=== PATIENT | female | born 1990 | race Hispanic/Latino ===

== ENCOUNTER 2018-10-30 04:04 | Inpatient (IN) | payer OTHER ==
[2018-10-30] MEDS ORDERED: METHYLERGONOVINE 0.2MG/ML AMP IM PRN (04:42)
[2018-10-30] MEDS ORDERED: BUTORPHANOL 1 MG/ML INJ IV PRN (04:42)
[2018-10-30] MEDS ORDERED: PROMETHAZINE 25 MG/ML VIAL IM PRN (04:42)
[2018-10-30] MEDS ORDERED: Ringers Lactate 1,000 ML IV PRN (04:42)
[2018-10-30] MEDS ORDERED: CARBOPROST TROME 250 MCG/ML IM PRN (04:42)
[2018-10-30] MEDS ORDERED: OXYTOCIN/LR 20 UNIT/1,000 ML BAG IV SCH ×2 (05:00→10:00)
[2018-10-30] MEDS ORDERED: Ringers Lactate 1,000 ML IV SCH (05:00)
[2018-10-30] MEDS ORDERED: CLINDAMYCIN 900MG/D5W 900 MG/50 ML IVPB IV ONE (05:28)
[2018-10-30 05:44] VITALS: BMI 33.6
[2018-10-30] MEDS ORDERED: CLINDAMYCIN INJ 900 MG in NA CHLORIDE 0.9% 50 ML IV SCH (06:00)
[2018-10-30 06:02] LABS: Urine Appearance CLEAR; Urine Bilirubin NEGATIVE (NEG); Urine Blood NEGATIVE (NEG); Urine Color YELLOW; Urine Glucose 2+ (NEG); Urine Protein NEGATIVE (NEG); Urine Specific Gravity >=1.030 (1.005-1.030); Urine pH 6.5 (5.0-7.0)
[2018-10-30 06:04] LABS: Urine Microscopic Reflex NO UMIC
[2018-10-30 06:07] LABS: Absolute Lymphocytes (CBC) 2.2 K/uL (0.7-4.9); Basophils % 0.2 % (0-1.3); Hematocrit 30.6 % (36.0-45.0); Lymphocytes % 20.5 % (15.3-44.8); MPV 8.8 fL (7.6-11.3); RBC Red Blood Cell Count 3.21 M/uL (3.86-4.86)
[2018-10-30] MEDS ORDERED: MEPERIDINE HCL 25 MG/0.5 ML IV ONE (09:02)
[2018-10-30] MEDS ORDERED: LIDOCAINE 1% 20 ML MDV ONE (09:49)
[2018-10-30] MEDS ORDERED: DOCUSATE NA/SENNA CONC 1 TAB PO PRN (09:57)
[2018-10-30] MEDS ORDERED: Oxycodone HCl/Acetaminophen 1 TAB TAB PO PRN (09:57)
[2018-10-30] MEDS ORDERED: ACETAMINOPHEN 500 MG TAB PO PRN (09:57)
[2018-10-30] MEDS ORDERED: BISACODYL 10 MG RECTAL SUPP RECT PRN (09:57)
[2018-10-30] MEDS ORDERED: DIPHENHYDRAMINE 25 MG TAB/CAP PO PRN (09:57)
--- NOTE | 2018-10-30 11:40 | PREOPHP ---
Date of Admission: 10/30/2018 Cindy Albrecht is a 27-year-old 3, para 2, 39 weeks. Rh positive. Immune to Rubella. Positiv e beta-strep screen. Allergic to penicillin. She has been put on Cleocin, has received 1 dose thus far. FHTs normal, reactive. Vital signs all stable. Patient is anemic on admission, though with he matocrit of approximately 31. This has been discussed with the patient during her . Patien t is 3.5, almost 4 cm, 60% effaced, vertex, well applied. The cervix still slightly posterior. Rupt ure of membranes, clear fluid. Labor talk given. The patient has had 2 natural childbirths and she anticipates going natural with this one as well. Anticipate delivery relatively soon, hopefully befo re midday. SURESH/NEHA Voice ID: [id number]
--- NOTE | 2018-10-30 11:43 | OP ---
Surgeon: Eric Pritchard MD 27-year-old 3, para 1, 39 weeks gestation. 3.5 cm when first examined this morning. Contrac ting regularly. FHTs normal, reactive. She had 1 dose of Cleocin as she was beta strep positive but allergic to penicillin. Rupture of membranes at that point. Patient went to a very active labor pa ttern. Used Lamaze breathing techniques throughout. Second stage of 10-15 minutes or less. Spontan eous vaginal delivery of a 7 pound 8 ounce female. Apgars 9 and 9. No episiotomy. No laceration. Schultze delivery of the placenta, which was inspected and noted to be intact and normal. Less than 250 mL blood loss. Rh positive, immune to Rubella. Tolerated all procedures well. Final Diagnoses: Term intrauterine at 39 weeks, vaginal delivery, Cleocin prophylaxis. SURESH/NEHA Voice ID: [id number] Report ID: [id number]
[2018-10-30] MEDS: IBUPROFEN 200 MG TAB PO PRN ×2 (12:50→21:00)
[2018-10-30] MEDS: Oxycodone HCl/Acetaminophen 1 TAB TAB PO PRN ×2 (16:43→22:55)
[2018-10-30 21:44] LABS: RPR (Rapid Plasma Reagin) NON-REACT (NON-REACT)
[2018-10-31 07:15] VITALS: BP 126/82; TEMP 97.4
--- NOTE | 2018-11-02 10:13 | DS ---
Date of Discharge: 10/31/2018 Roland Albrecht is a 27-year-old 3, para 2 at 39 weeks gestation for elective induction. Pros and cons of this thoroughly discussed prior to admission. Rh positive, immune to Rubella. Positive beta strep screen. Allergic to penicillin. During the labor patient received Cleocin for prophylaxi s. After rupture of membranes, went into an active labor pattern. Delivered rapidly. Short second stage of 10-15 minutes. Spontaneous vaginal delivery of a 7 pounds 8 ounce female. Apgars 9 and 9. No episiotomy. No laceration. Schultze delivery of the placenta, which was inspected and noted to be intact and normal. 250 cc blood loss or less. ; afebrile, ambulating and voiding. Loc hia is normal. She has had her Tdap immunization. Requesting analgesics on dismissal. Will be give n tramadol, although she may elect to take Motrin instead. Final Diagnoses: Term intrauterine 39 weeks. Vaginal delivery. Beta streptococcus prophy laxis, Cleocin. SURESH/NEHA Voice ID: [id number] Report ID: [id number]
[2018-11-02 12:49] LABS: HBsAG Nonreactive (Nonreactive)
== END 2018-10-31 12:30 | disposition home or self-care (01) | DRG 807 ==
LOC: 2ND-WC 04:04
PROVIDERS: ADMIT Specialist; ATTEND Specialist
PROC: 10E0XZZ Delivery of Products of Conception, External Approach (ICD-10-PCS; principal; 2018-10-30)
PROC: 10907ZC Drainage of Amniotic Fluid, Therapeutic from Products of Conception, Via Natural or Artificial Opening (ICD-10-PCS; 2018-10-30)
DX: O99.824 Streptococcus B carrier state complicating childbirth (principal); Z37.0 Single live birth; O99.02 Anemia complicating childbirth; Z3A.39 39 weeks gestation of pregnancy; Z88.0 Allergy status to penicillin
CPT/HCPCS: 36415; 81003; 85025; 86592; 86850; 86900; 86901; 87340; J2175; J2210; J2590

== ENCOUNTER 2018-11-13 12:45 | Emergency (ER) | payer OTHER ==
--- NOTE | 2018-11-13 13:51 | EDPHYS ---
Physician Documentation [facility] Name: Cindy Albrecht Age: 28 yrs Sex: Female : 1990 Arrival Date: 11/13/2018 Time: 12:48 Bed 27 Private MD: ED Physician Jenaro Zamudio HPI: 11/13 13:43 This 28 yrs old Female presents to ER via Ambulatory with complaints of Breast pm1 Problem. 13:43 Left breast pain. Onset: The symptoms/episode began/occurred yesterday. Severity of pm1 symptoms: in the emergency department the symptoms are unchanged. The patient has not experienced similar symptoms in the past. The patient has not recently seen a physician. Patient with left breast tissue pain that started yesterday. patient is breast feeding. 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 - Social history:: Smoking status: Patient/guardian denies using tobacco. - Ebola Screening: : No symptoms or risks identified at this time. ROS: 13:43 Constitutional: Negative for fever, chills, and weight loss, Eyes: Negative for injury, pm1 pain, redness, and discharge, ENT: Negative for injury, pain, and discharge, Neck: Negative for injury, pain, and swelling, Cardiovascular: Negative for chest pain, palpitations, and edema, Respiratory: Negative for shortness of breath, cough, wheezing, and pleuritic chest pain, Abdomen/GI: Negative for abdominal pain, nausea, vomiting, diarrhea, and constipation, Back: Negative for injury and pain, : Negative for injury, bleeding, discharge, and swelling, MS/Extremity: Negative for injury and deformity, Skin: Negative for injury, rash, and discoloration, Neuro: Negative for headache, weakness, numbness, tingling, and seizure. Exam: 13:43 Constitutional: This is a well developed, well nourished patient who is awake, alert, pm1 and in no acute distress. Head/Face: Normocephalic, atraumatic. Eyes: Pupils equal round and reactive to light, extra-ocular motions intact. Lids and lashes normal. Conjunctiva and sclera are non-icteric and not injected. Cornea within normal limits. Periorbital areas with no swelling, redness, or edema. ENT: Nares patent. No nasal discharge, no septal abnormalities noted. Tympanic membranes are normal and external auditory canals are clear. Oropharynx with no redness, swelling, or masses, exudates, or evidence of obstruction, uvula midline. Mucous membranes moist. Neck: Trachea midline, no thyromegaly or masses palpated, and no cervical lymphadenopathy. Supple, full range of motion without nuchal rigidity, or vertebral point tenderness. No Meningismus. 13:43 Cardiovascular: Regular rate and rhythm with a normal S1 and S2. No gallops, murmurs, or rubs. Normal PMI, no JVD. No pulse deficits. Respiratory: Lungs have equal breath sounds bilaterally, clear to auscultation and percussion. No rales, rhonchi or wheezes noted. No increased work of breathing, no retractions or nasal flaring. Abdomen/GI: Soft, non-tender, with normal bowel sounds. No distension or tympany. No guarding or rebound. No evidence of tenderness throughout. Back: No spinal tenderness. No costovertebral tenderness. Full range of motion. Skin: Warm, dry with normal turgor. Normal color with no rashes, no lesions, and no evidence of cellulitis. MS/ Extremity: Pulses equal, no cyanosis. Neurovascular intact. Full, normal range of motion. 13:43 Chest/axilla: Inspection: normal, Breasts: abscess, not appreciated, cellulitis, is not appreciated, rash, is not appreciated, tenderness, that is mild of the left breast, 8 o'clock. 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 13:43 Neuro: Orientation: is normal, Motor: is normal, moves all fours. Vital Signs: 12:51 BP 142 / 93; Pulse 84; Resp 18; Temp 98; Pulse Ox 100% ; Weight 80.29 kg; Height 5 ft. sv 3 in. (160.02 cm); Pain 6/10; 13:14 BP 132 / 78; Pulse 87; Resp 18; Temp 97.8; Pulse Ox 100% on R/A; wh 12:51 Body Mass Index 31.35 (80.29 kg, 160.02 cm) sv MDM: 13:15 Patient medically screened. pm1 13:43 Data reviewed: vital signs. Data interpreted: Pulse oximetry: on room air is 100 %. pm1 Interpretation: normal. Counseling: I had a detailed discussion with the patient and/or guardian regarding: the historical points, exam findings, and any diagnostic results supporting the discharge/admit diagnosis, the need for outpatient follow up, for definitive care, an OB/Gyne specialist, to return to the emergency department if symptoms worsen or persist or if there are any questions or concerns that arise at home. Administered Medications: No medications were administered Disposition: 16:06 Co-signature as Attending Physician, Jenaro Zamudio MD I agree with the assessment and kdr plan of care. Disposition: 11/13/18 13:50 Discharged to Home. Impression: Nonpurulent mastitis associated with . - Condition is Stable. - Discharge Instructions: Mastitis, and Mastitis. - Prescriptions for clarithromycin 500 mg Oral tablet - take 1 tablet by ORAL route every 12 hours for 10 days; 20 tablet. - Medication Reconciliation Form, Thank You Letter, Antibiotic Education, Prescription Opioid Use form. - Follow up: Emergency Department; When: As needed; Reason: Worsening of condition. Follow up: Private Physician; When: 2 - 3 days; Reason: Recheck today's complaints, Continuance of care, Re-evaluation by your physician. - Problem is new. - Symptoms have improved. Signatures: Daina Allison RN RN Jenaro Perez MD MD [facility] Ronaldo Oquendo, [employer] MILL OPERATOR HELPER pm1 Daniel Olvera Corrections: (The following items were deleted from the chart) 13:50 13:50 11/13/2018 13:50 Discharged to Home. Impression: Nonpurulent mastitis associated pm1 with . Condition is Stable. Forms are Medication Reconciliation Form, Thank You Letter, Antibiotic Education, Prescription Opioid Use. pm1 14:03 13:50 11/13/2018 13:50 Discharged to Home. Impression: Nonpurulent mastitis associated wh with . Condition is Stable. Forms are Medication Reconciliation Form, Thank You Letter, Antibiotic Education, Prescription Opioid Use. Follow up: Emergency Department; When: As needed; Reason: Worsening of condition. Follow up: Private Physician; When: 2 - 3 days; Reason: Recheck today's complaints, Continuance of care, Re-evaluation by your physician. Problem is new. Symptoms have improved. pm1
--- NOTE | 2018-11-13 13:51 | ER ---
Nurse's Notes [facility] Name: Cindy Albrecht Age: 28 yrs Sex: Female : 1990 Arrival Date: 11/13/2018 Time: 12:48 Bed 27 Private MD: Diagnosis: Nonpurulent mastitis associated with Presentation: 11/13 12:50 Presenting complaint: Patient states: sharp left breast pain started yesterday, also sv reports headaches and dizziness. Pt is currently . Transition of care: patient was not received from another setting of care. Onset of symptoms was October 2018. Risk Assessment: Do you want to hurt yourself or someone else? Patient reports no desire to harm self or others. Initial Sepsis Screen: Does the patient meet any 2 criteria? No. Patient's initial sepsis screen is negative. Does the patient have a suspected source of infection? No. Patient's initial sepsis screen is negative. Care prior to arrival: None. 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 - Social history:: Smoking status: Patient/guardian denies using tobacco. - Ebola Screening: : No symptoms or risks identified at this time. Screenin:10 Abuse screen: Denies threats or abuse. Denies injuries from another. Nutritional wh screening: No deficits noted. Tuberculosis screening: No symptoms or risk factors identified. Fall Risk None identified. Assessment: 13:12 General: Appears in no apparent distress. Behavior is calm, cooperative, appropriate wh for age. Pain: Complains of pain in left breast Pain does not radiate. Pain currently is 6 out of 10 on a pain scale. Quality of pain is described as aching, Pain began 1 day ago. Is continuous. Neuro: Level of Consciousness is awake, alert, obeys commands, Oriented to person, place, time, situation, Appropriate for age. Cardiovascular: Capillary refill < 3 seconds. Respiratory: Airway is patent Respiratory effort is even, unlabored, Respiratory pattern is regular, symmetrical. GI: Abdomen is flat, non-distended. : No signs and/or symptoms were reported regarding the genitourinary system. EENT: No signs and/or symptoms were reported regarding the EENT system. Derm: Skin is intact, is healthy with good turgor, Skin is pink, warm \T\ dry. normal. Musculoskeletal: Range of motion: intact in all extremities. Vital Signs: 12:51 BP 142 / 93; Pulse 84; Resp 18; Temp 98; Pulse Ox 100% ; Weight 80.29 kg; Height 5 ft. sv 3 in. (160.02 cm); Pain 6/10; 13:14 BP 132 / 78; Pulse 87; Resp 18; Temp 97.8; Pulse Ox 100% on R/A; wh 12:51 Body Mass Index 31.35 (80.29 kg, 160.02 cm) sv ED Course: 12:48 Patient arrived in ED. mr 12:51 Triage completed. sv 12:51 Arm band placed on. sv 13:10 Daniel Olvera is Primary Nurse. wh 13:12 Patient has correct armband on for positive identification. Placed in gown. Bed in low wh position. Call light in reach. Side rails up X 1. Pulse ox on. NIBP on. 13:15 Ronaldo Oquendo NP is PHCP. pm1 13:15 Jenaro Zamudio MD is Attending Physician. pm1 14:02 No provider procedures requiring assistance completed. Patient did not have IV access wh during this emergency room visit. Administered Medications: No medications were administered Outcome: 13:50 Discharge ordered by . pm1 14:02 Discharged to home ambulatory. 14:02 Condition: good 14:02 Discharge instructions given to patient, Instructed on discharge instructions, follow up and referral plans. medication usage, POC Mastitis Demonstrated understanding of instructions, follow-up care, medications, POC Prescriptions given X 1. 14:03 Patient left the ED. Signatures: Daina Allison RN RN vidal HillaSydnee mr Ronaldo Oquendo NP FINGER GRIP MACHINE OPERATOR pm1 Daniel Olvera
[2018-11-13 14:15] VITALS: BP 132/78; TEMP 97.8; O2SAT 100
== END 2018-11-13 14:03 | disposition home or self-care (01) ==
LOC: ER 12:45
DX: O91.23 Nonpurulent mastitis associated with lactation (principal); Z88.0 Allergy status to penicillin
CPT/HCPCS: 99283

== ENCOUNTER 2020-07-03 13:44 | Emergency (ER) | payer SELFPAY ==
--- NOTE | 2020-07-03 19:06 | ER ---
Nurse's Notes [facility] Name: Cindy Albrecht Age: 29 yrs Sex: Female : 1990 Arrival Date: 07/03/2020 Time: 13:50 Bed Waiting Private MD: Diagnosis: Presentation: 07/03 13:57 Chief complaint: Patient states: RUQ abd pain for 1 day, radiates to back. + nausea. ll1 Coronavirus screen: Client denies travel out of the [place] in the last 14 days. At this time, the client does not indicate any symptoms associated with coronavirus-19. Ebola Screen: Patient denies travel to an Ebola-affected area in the 21 days before illness onset. Initial Sepsis Screen: Does the patient meet any 2 criteria? No. Patient's initial sepsis screen is negative. Does the patient have a suspected source of infection? Yes: Acute abdominal pain. Risk Assessment: Do you want to hurt yourself or someone else? Patient reports no desire to harm self or others. Onset of symptoms was July 03, 2020. 13:57 Method Of Arrival: Ambulatory ll1 13:57 Acuity: MARIA VICTORIA 3 ll1 Historical: - Allergies: 13:59 PENICILLINS; ll1 13:59 Amoxicillin; ll1 - PMHx: 13:59 Anxiety; ll1 - PSHx: 13:59 Knee surgery; ankle sx; ll1 - Immunization history:: Flu vaccine is not up to date. - Social history:: Smoking status: Patient denies any tobacco usage or history of. Vital Signs: 13:57 BP 157 / 95; Pulse 85; Resp 17; Temp 98.8; Pulse Ox 96% ; Weight 74.39 kg; Height 5 ft. ll1 3 in. (160.02 cm); Pain 5/10; 13:57 Body Mass Index 29.05 (74.39 kg, 160.02 cm) ll1 ED Course: 13:50 Patient arrived in ED. mr 13:58 Triage completed. ll1 13:59 Arm band placed on. ll1 Administered Medications: No medications were administered Outcome: 19:05 Eloped from waiting room. ss 19:05 unknown 19:06 Patient left the ED. Signatures: Sydnee Martin mr Betty Le RN RN Binu, Lynsay, RN RN ll1
[2020-07-03 19:10] VITALS: BP 157/95; TEMP 98.8; O2SAT 96
== END 2020-07-03 19:06 | disposition left against medical advice (07) ==
LOC: ER 13:44
DX: Z53.21 Procedure and treatment not carried out due to patient leaving prior to being seen by health care provider (principal)
CPT/HCPCS: 99281

== ENCOUNTER 2022-04-25 23:13 | Emergency (ER) | payer OTHER, SELFPAY ==
--- OUTSIDE RECORDS SUMMARY | 2022-04-25 23:16 | XMS REPORT | Continuity of Care Document ---
:1990 Author Organization [facility] t Address [address] [place] [address] Care Team Providers Name Role Phone Enoch Kong DO Primary Care Physician ENOCH KONG Attending Clinician Unavailable Enoch Kong DO Attending Clinician LAB90 Attending Clinician Unavailable Ritika Preciado MD Attending Clinician RITIKA PRECIADO Attending Clinician Unavailable Freddie Medley Attending Clinician Payers Payer Name Policy Type Policy Number Effective Date Expiration Date Davida TRANNA 2 [id number] 2021 00:00:00 Problems Condition Condition Condition Status Onset Resolution Last Treating Co mments Source Name Details Category Date Date Treatment Clinician Date Class 1 Class 1 Disease Active Rocío obesity obesity 07-23 Seybold due to due to 00:00: excess excess 00 calories calories without without serious serious comorbidit comorbidit y with y with body mass body mass index index (BMI) of (BMI) of 32.0 to 32.0 to 32.9 in 32.9 in adult adult Prediabete Prediabete Disease Active Overview : Rocío romero 4-15 Formattin Seybold 00:00: g of this 00 note might be different from the original. Lab 06/2021 A1c 5.7 Seasonal Seasonal Disease Active Martha y allergic allergic 06-18 Seybol d rhinitis rhinitis 00:00: due to due to 00 pollen pollen Migraine Migraine Disease Active Kelse y with aura with aura 4-04 Seyb old and and 00:00: without without 00 status status migrainosu migrainosu s, not s, not intractabl intractabl e e Acute Acute Disease Active Rocío non-recurr non-recurr 4-04 Se ybmurray ent ent 00:00: maxillary maxillary 00 sinusitis sinusitis Simple Simple Problem Active 2019-01-23 Rip siobhan obesity obesity 01:15:25 l (disorder) (disorder) He rmann Active Problem 01/23/2019 [facility] Allergies, Adverse Reactions, Alerts Allergy Allergy Status Severity Reaction(s) Onset Inactive Treating Comm ents Source Name Type Date Date Clinician Penicill Propensi Active Anaphylaxis 2020-0 U nivers in ty to 605 ity of adverse 00:00: [place] reaction 00 Medical s Branch AMOXICIL DRUG Active Anaphylaxis 2020-0 Uni vers TONYA INGREDI 605 ity of 00:00: [place] 00 Medical Branch PENICILL DRUG Active Anaphylaxis 2020-0 Uni vers IN INGREDI 605 ity of 00:00: [place] 00 Medical Branch Amoxicil Propensi Active Anaphylaxis 2020-0 U nivers tonya ty to 6-05 ity of adverse 00:00: [place] reaction 00 Medical s Branch Amoxicil Propensi Active Anaphylaxis 2018-0 K elsey tonya ty to 9-19 Seybold adverse 00:00: reaction 00 s Penicill Propensi Active Anaphylaxis 2018-0 K elsey ins ty to 9-19 Seybold adverse 00:00: reaction 00 s penicill penicill Active Memori a ins ins l Humphrey amoxicil amoxicil Active Memori a tonya tonya l Humphrey Social History Social Habit Start Date Stop Date Quantity Comments Source History SDOH Rocío alexis Alcohol Frequency History SDOH Rocío alexis Alcohol Std Drinks History SDOH Rocío alexis Alcohol Binge Exposure to Not sure [facility] SARS-CoV-2 [place] [facility] (event[facility] Alcohol intake 2021-07-23 2021-07-23 Rocío monge 00:00:00 00:00:00 Alcohol Comment 2021-06-18 2021-06-18 occasional Rocío gilbert 00:00:00 00:00:00 Education 2021-06-18 2021-06-18 16 Rocío Mireles 00:00:00 00:00:00 Tobacco use and 2021-06-18 2021-06-18 Smokeless tobacco Ruben Mireles exposure 00:00:00 00:00:00 non-user Social History 2019-01-20 2019-01-20 Estefany escalante 21:02:06 21:02:06 Sex [birth year] At [birth year] Rocío gilbert 00:00:00 00:00:00 Smoking Status Start Date Stop Date Source Never smoked tobacco Rocío gao Medications Ordered Filled Start Stop Current Ordering Indication Dosage Frequency Signature Comments Components Source Medication Medication Date Date Medication? Clinician (SIG) Name Name ALBUTEROL Yes 2{puff} [id number] Inhale 2 Rocío [place] - [id number] puffs into Sey bold 11:13: 3D the lungs 07 3 times daily as needed Alprazolam Yes .5mg QD Take 0.5 Osmar sey 0.5 MG oral 5-09 mg by Seybold Tablet 11:04: mouth 06 nightly as needed Montelukast Yes [id number] 10mg Take 1 Rocío (Singulair) 5-09 tablet (10 Se ybold 10 MG oral 00:00: mg total) Tablet 00 by mouth tablet nightly Alprazolam Yes .5mg QD Take 0.5 Osmar sey 0.5 MG oral 4-04 mg by Seybold Tablet 11:17: mouth 38 nightly as needed Azithromyci Yes [id number] Take 2 Rocío n 250 MG 4-04 tablets by Seybo ld oral Tablet 00:00: mouth on 00 day 1 then 1 tablet by mouth daily for 4 days thereafter . Cetirizine Yes [id number] 10mg Take 1 K elsey HCl (ZyrTEC 4-04 capsule Seybo ld Allergy) 10 00:00: (10 mg MG oral 00 total) by Capsule mouth daily FLUTICASONE Yes [id number] 50ug Use 1 K elsey PROPIONATE, 4-04 spray (50 Sey bold NASAL, 50 00:00: mcg total) MCG/ACT 00 in each nasal nostril Suspension daily Cetirizine Yes [id number] 10mg Take 1 K elsey HCl (ZyrTEC 4-04 capsule Seybo ld Allergy) 10 00:00: (10 mg MG oral 00 total) by Capsule mouth daily FLUTICASONE Yes [id number] 50ug Use 1 K elsey PROPIONATE, 4-04 spray (50 Sey bold NASAL, 50 00:00: mcg total) MCG/ACT 00 in each nasal nostril Suspension daily Azithromyci 2021- No [id number] Take 2 Rocío n 250 MG 4-04 -09 tablets by Seyb old oral Tablet 00:00: 00:00 mouth on 00 :00 day 1 then 1 tablet by mouth daily for 4 days thereafter . sucralfate Yes [id number] 1g Take 1 U nivers 1 gram 4-22 tablet by ity of tablet 00:00: mouth [place] 00 before Medical meals and Branch at bedtime. ondansetron Yes [id number] 4mg Take 1 Univers 4 mg 4-22 tablet by ity of disintegrat 00:00: mouth [place] ing tablet 00 every 4 Medica l (four) Branch hours as needed for Nausea and Vomiting (N/V). pantoprazol Yes [id number] 40mg Take 1 Univers e 40 mg EC 4-22 tablet by ity of tablet 00:00: mouth [place] 00 daily. Medical Branch Immunizations Ordered Immunization Filled Immunization Date Status Commen ts Source Name Name influenza virus 2019-01-20 Completed [facility], 22:15:[address] [place] inactivated<sup>1</s up> Influenza Virus 2019-01-20 Completed Rocío garzamurray Vaccine, No Preserv, 00:00:00 age 6 months and up Influenza Virus 2019-01-20 Completed Rocío garzamurray Vaccine, No Preserv, 00:00:00 age 6 months and up Vital Signs Vital Name Observation Time Observation Value Comments Source Systolic blood 2021-07-23 16:03:00 124 mm[Hg] Rocío Mireles pressure Diastolic blood 2021-07-23 16:03:00 82 mm[Hg] Martha Mireles pressure Heart rate 2021-07-23 16:03:00 107 /min Rocío alonso Body temperature 2021-07-23 16:03:00 36.72 Jailyn Niya ey Seybold Respiratory rate 2021-07-23 16:03:00 14 /min Niya ey Seybold Body height 2021-07-23 16:03:00 160 cm Rocío Romero eybold Body weight 2021-07-23 16:03:00 82.192 kg Rocío Romero eybold BMI 2021-07-23 16:03:00 32.10 kg/m2 Rocío Romero eybold Systolic blood 2021-06-18 16:12:00 120 mm[Hg] Rocío Seybold pressure Diastolic blood 2021-06-18 16:12:00 83 mm[Hg] Kelse y Seybold pressure Heart rate 2021-06-18 16:12:00 87 /min Rocío Romero eybold Body temperature 2021-06-18 16:12:00 36.56 Jailyn Niya ey Seybold Respiratory rate 2021-06-18 16:12:00 14 /min Niya weston Seybmurray Body height 2021-06-18 16:12:00 160 cm Rocío westonbovanesa Body weight 2021-06-18 16:12:00 82.373 kg WITH SHOES Rocío westonbold BMI 2021-06-18 16:12:00 32.17 kg/m2 Rocío westonbovanesa Oxygen saturation 2021-06-18 16:12:00 99 /min Osmar Mireles in Arterial blood by Pulse oximetry Systolic blood 2020-07-06 17:00:00 119 mm[Hg] [facility] Diastolic blood 2020-07-06 17:00:00 74 mm[Hg] Unive rs[facility] Heart rate 2020-07-06 17:00:00 75 /min [facility] Oxygen saturation 2020-07-06 17:00:00 99 /min Uni versity of in Arterial blood [facility] by Pulse oximetry Branch Body temperature 2020-07-06 15:52:00 36.61 Jailyn Univ ers[facility] Respiratory rate 2020-07-06 15:52:00 18 /min Univ ersity of [facility] Body weight 2020-07-06 15:52:00 74.39 kg Universi [facility] Diastolic (mm Hg) 2019-01-20 21:01:00 Parvez Yin Heart Rate 2019-01-20 21:01:00 Estefany Yin Temperature Oral 2019-01-20 21:01:00 98.8 F Rip Yin (F) Height 2019-01-20 21:01:00 160.02 cm Estefany Yin Weight 2019-01-20 21:01:00 Estefany Yin BMI Calculated 2019-01-20 21:01:00 Tricia Gu Systolic (mm Hg) 2019-01-20 21:01:00 Rip Yin Procedures Procedure Date / Time Performing Clinician Source Performed US GALL BLADDER 2020-07-06 16:24:48 Ozzy Ritika [facility] LIPASE 2020-07-06 16:07:00 Ozzy Ritika [facility] HEPATIC FUNCTION PANEL 2020-07-06 16:07:00 Ritika Preciado [facility] ([id number]) (ALB,T.PRO,BILI [facility] T,BU/BC,ALT,AST,ALK PHOS) BASIC METABOLIC PANEL 2020-07-06 16:07:00 Ritika Preciado [facility] (NA, K, CL, CO2, [facility] GLUCOSE, BUN, CREATININE, CA) CBC WITH DIFF 2020-07-06 16:07:00 Ozzy Ritika [facility] PROTHROMBIN TIME / INR 2020-07-06 16:07:00 Ritika Preciado [facility] ACTIVATED PARTIAL 2020-07-06 16:07:00 Ritika Preciado [facility] THRMPLAS SHANAE [facility] URINALYSIS 2020-07-06 16:07:00 Ozzy Ritika [facility] POCT TEST 2020-07-06 16:05:00 Ritika Preciado [facility] NOTICE OF PRIVACY 2020-07-06 15:24:21 Doctor Unassigned, No Univ [facility] PRACTICES Name [facility] CONSENT/REFUSAL FOR 2020-07-06 15:24:11 Doctor Unassigned, No [facility] Name Medical Branch Injury of right 2018-12-18 05:00:00 [facility] Her [place] ankle<sup>1</sup> Injury of left knee [facility] [place] Encounters Start End Encounter Admission Attending Care Care Encounter Source Date/Time Date/Time Type Type Clinicians Facility Department ID 2021-08-02 2021-08-02 Outpatient ROCÍO KONG [id number] Rocío 00:00:00 00:00:00 ENOCH Seybol d 2021-07-23 2021-07-23 Office TheresewildaOdell romero [id number] Rocío 11:00:00 11:15:00 Visit Enoch Flores [id number] Se ybold [id number] 2021-07-17 2021-07-17 Outpatient ROCÍO KONG [id number] Rocío 09:30:00 09:30:00 ENOCH Chanybol marjorie 2021-06-28 2021-06-28 Outpatient LAB90 ROCÍO BLAND [id number] Rocío 09:55:00 09:55:00 Segregol marjorie 2021-06-18 2021-06-18 Outpatient ROCÍO KONG [id number] Rocío 13:30:00 13:30:00 ENOCH Seybol d 2021-06-18 2021-06-18 Office Odell Kong [id number] Rocío 11:15:00 11:45:00 Visit Enoch Flores [id number] Se ybold [id number] 2021-06-18 2021-06-18 Outpatient ROCÍO KONG [id number] Rocío 00:00:00 00:00:00 ENOCH Chanybol d 2020-07-06 2020-07-06 Emergency SHARRI Preciado [id number] Univers 10:54:00 12:10:00 Ritika Ramirez [id number] jennifer Torres 4.2.7.2.686 [facility] [id number] [address] 2020-07-06 2020-07-06 Emergency X OZZY [facility] ERT [id number] Univers 10:54:00 10:54:00 RITIKA arauz [facility] 2019-01-20 2019-01-21 Outpatient Karlao [facility] [id number] Memoria 21:30:00 05:59:59 r Primary 00 l Guy Yin [facility] 2019-01-20 2019-01-20 Outpatient MARILEE Medley [facility] [id number] 15:30:00 23:59:59 Freddie Perez 00 2019-01-20 2019-01-20 Outpatient JOANNE [facility] [id number] Memoria 15:30:00 15:30:00 00 carlos Yin Results Test Description Test Time Test Comments Results Result Comments Source aPTT 2020-07-06 16:40:09 Test Item Value Reference Range Interpretation Comme nts APTT Patient (test code = See_Comment [ Automated message] The 3173-2) system which ge nerated this result tra nsmitted reference range : 23 - 38 Seconds. The re ference range was not u sed to interpret this result as normal/abnormal . BOBY (test code = BOBY) The [facility] patient population mean normal value for aPTT is 30 seconds. Lab Interpretation (test Normal code = 22436-4) [facility] [place] [facility] ([facility] / [id number] 16:37:46 Test Item Value Reference Range Interpretation Comments PROTIME PATIENT (test See_Comment [Auto mated message] code = 5964-2) The system [employer] generated this result transmitted ref erence range: 12.0 - 1 4.7 Seconds. The re ference range was not u sed to interpret this result as normal/abnor mal. INR (test code = 6301-6) Nor mal INR <1.1; Warfarin Therap eutic range 2.0 to 3. 0 or 2.5 to 3.5, dep ending upon the indica tions. Lab Interpretation (test Normal code = 76503-2) [facility] [place] [facility]Allen[facility]inalysis2021-04-22 16:31:47 Test Item Value Reference Range Interpretation Comments APPEARANCE (test code = Clear Clear 2288430147) COLOR (test code = Yellow Yellow 6725736578) PH (test code = 4.8-8.0 0134467012) SP GRAVITY (test code = 1.003-1.030 3507119609) GLU U QUAL (test code = Normal Normal 1145367429) BLOOD (test code = Negative Negative 2081126818) KETONES (test code = Negative Negative 3005823274) PROTEIN (test code = Negative Negative 2887-8) UROBILIN (test code = Normal Normal 6571061919) BILIRUBIN (test code = Negative Negative 3532495982) NITRITE (test code = Negative Negative 2780445149) LEUK MARY (test code = 25/uL Negative A 3886713398) RBC/HPF (test code = See_Comment [Autom ated message] 2534110434) The system [employer] generated this result transmitted ref erence range: 0 - 3 HP F. The reference range was not used to int erpret this result as normal/abnormal . WBC/HPF (test code = See_Comment [Autom ated message] 9332951255) The system [employer] generated this result transmitted ref erence range: 0 - 5 HP F. The reference range was not used to int erpret this result as normal/abnormal . BACTERIA (test code = Negative Negative 2905083937) MUCOUS (test code = Slight Negative LPF A 4528821890) SQ EPITH (test code = HPF 8968950094) Lab Interpretation (test Abnormal code = 12357-8) [facility] [place] [facility] (NA, K, CL, CO2, GLUCOSE, BUN, CREATININE, CA)2020-07-06 16:27:48 Test Item Value Reference Range Interpretation Comments NA (test code = 140 mmol/L 135-145 2939915160) K (test code = 4.1 mmol/L 3.5-5.0 0853588434) CL (test code = 104 mmol/L 98-108 6479213866) CO2 TOTAL (test code 28 mmol/L 23-31 = 4386423061) AGAP (test code = 2-16 3996593791) BUN (test code = 15 mg/dL 7-23 0340927618) GLUCOSE (test code = 100 mg/dL 70-110 5744433350) CREATININE (test code 0.73 mg/dL 0.50-1.04 = 1505218297) CALCIUM (test code = 9.3 mg/dL 8.6-10.6 5053377844) eGFR (test code = mL/min/1.73m2 2401706955) BOBY (test code = BOBY) Association of Glomerular Filtration Rate (GFR) and Staging of Kidney Disease* + + +- +| GFR (mL/min/1.73 m2) ?| With Kidney Damage ?| ?Without Kidney Damage+ ------+ ----+ ------+| ?>90 ?| ?Stage one ?| ? Normal ?+ -+ + -+| ?60-89 ?| ?Stage two ?| ? Decreased GFR ? + + +- +| ?30-59 ?| ?Stage three ?| ? Stage three ? + + +- +| ?15-29 ?| ?Stage four ? | ? Stage four ?+ -+ + -+| ?<15 (or dialysis) ? ?| ?Stage five ? | ? Stage five ?+ -+ + -+ *Each stage assumes the associated GFR level has been in effect for at least three months. ?Stages 1 to 5, with or without kidney disease, indicate chronic kidney disease. Notes: Determination of stages one and two (with eGFR >59mL/min/1.73 m2) requires estimation of kidney damage for at least three months as defined by structural or functional abnormalities of the kidney, manifested by either:Pathological abnormalities or Markers of kidney damage (including abnormalities in the composition of the blood or urine or abnormalities in imaging tests). [facility] [place] [facility] Function [facility] (ALB, T.PRO, BILI T, BU/BC, ALT, AST, ALK PHOS)2020-07-06 16:27:48 Test Item Value Reference Range Interpretation Comments TOTAL BILI (test code = 1881479798) 0.4 mg/dL 0.1-1.1 BILI UNCON (test code = 3206882384) 0.4 mg/dL 0.1-1.1 BILI CONJ (test code = 0495432847) 0.0 mg/dL 0.0-0.3 T PROTEIN (test code = 0247467148) 7.6 g/dL 6.3-8.2 ALBUMIN (test code = 1363115015) 4.6 g/dL 3.5-5.0 ALK PHOS (test code = 0167911067) 77 U/L 34-122 ALTv (test code = 1742-6) 22 U/L 5-35 AST(SGOT) (test code = 8513569569) 25 U/L 13-40 Lab Interpretation (test code = Normal 48991-4) [facility] [place] [facility]AllenLipase [id number] 16:27:48 Test Item Value Reference Range Interpretation Comments LIPASE (test code = 5574925946) 53 U/L 0-220 Lab Interpretation (test code = Normal 82911-7) [facility] [place] [facility]Allen[facility] GALL [id number] 16:26:11HISTORY: RUQ Abdominal pain. TECHNIQUE: Gallbladder is evaluated in multiple planes with the patientindifferent positions. Color imaging is utilized. FINDINGS: Gallbladder is partially contracted but no edema or thickening ofthe verduzco seen. No gallstones. No biliary sludge or crystals seen. No freefluid detected in pericholecystic space. Common hepatic duct is 2.8 mm.Hepatic and portal venous systemappeared patent. CONCLUSION: Essentially normal study. [facility], Radiant Results Inft User - 07/06/2020 11:27 AM CDTHISTORY: RUQ Abdominal pain.TECHNIQUE: Gallbladder is evaluated in multiple planes with the patient indifferent positions. Color imaging is utilized.FINDINGS: Gallbladder is partially contracted but no edema or thickening ofthe verduzco seen. No gallstones. No biliary sludge or crystals seen. No freefluid detected in pericholecystic space. Common hepatic duct is 2.8 mm.Hepatic and portal venous system appeared patent. CONCLUSION: Essentially normal study.[facility] [place] [facility] CBC with [id number] 16:14:04 Test Item Value Reference Range Interpretation Comments WBC (test code = See_Comment [Automated 8002-2) message] The sy stem which generated this result transmitted reference range : 4.30 - 11.10 10*3/?L. The reference range was not used to interpret this result as normal/abnormal . RBC (test code = See_Comment [Automated 579-8) message] The sy stem which generated this result transmitted reference range : 3.93 - 5.25 10*6/?L. The reference range was not used to interpret this result as normal/abnormal . HGB (test code = 13.1 g/dL 11.6-15.0 718-7) HCT (test code = 39.8 % 35.7-45.2 4544-3) MCV (test code = 95.9 fL 80.6-95.5 H 787-2) MCH (test code = 31.6 pg 25.9-32.8 785-6) MCHC (test code = 32.9 g/dL 31.6-35.1 786-4) RDW-SD (test code = 46.8 fL 39.0-49.9 52478-9) RDW-CV (test code = 13.2 % 12.0-15.5 788-0) PLT (test code = See_Comment [Automated 777-3) message] The sy stem which generated this result transmitted reference range : 166 - 358 10*3/ ?L. The reference r amadou was not used to interpret this result as normal/abnormal . MPV (test code = 9.5 fL 9.5-12.9 05723-0) NRBC/100 WBC (test See_Comment [Automat ed code = 4386365726) message] The system which generated this result transmitted reference range : 0.0 - 10.0 /100 WBCs. The refer ence range was not u sed to interpret th is result as normal/abnormal . NRBC x10^3 (test code <0.01 See_Comment [Auto mated = 5389996952) message] The s ystem which generated this result transmitted reference range : 10*3/?L. The reference range was not used to interpret this result as normal/abnormal . GRAN MAT (NEUT) % 58.8 % (test code = 770-8) IMM GRAN % (test code 0.40 % = 5113767693) LYMPH % (test code = 34.2 % 736-9) MONO % (test code = 5.5 % 5905-5) EOS % (test code = 0.9 % 713-8) BASO % (test code = 0.2 % 706-2) GRAN MAT x10^3(ANC) 5.45 10*3/uL 1.88-7.09 (test code = 7432506803) IMM GRAN x10^3 (test 0.04 10*3/uL 0.00-0.06 code = 1262593471) LYMPH x10^3 (test code 3.17 10*3/uL 1.32-3.29 = 731-0) MONO x10^3 (test code 0.51 10*3/uL 0.33-0.92 = 742-7) EOS x10^3 (test code = 0.08 10*3/uL 0.03-0.39 711-2) BASO x10^3 (test code <0.03 0.01-0.07 = 704-7) Lab Interpretation Abnormal (test code = 44032-3) [facility] [place] [facility] [id number] 16:05:00 Test Item Value Reference Range Interpretation Comments POCT PREG (test code = 1605) negative On board controls acceptable with present C Line (test code = 3574) POCT PREG LOT # (test code = 3575) [id number] POCT PREG TEST DATE (test 02/13/2022 code = 3576) Lab Interpretation (test code = Normal 68155-8) [facility] [place] [facility]"
[2022-04-26] MEDS ORDERED: HYDROCODONE/CHLORPHEN 5 ML/OSYR ONE (00:22)
[2022-04-26] MEDS ORDERED: FAMOTIDINE 20 MG TAB ONE (00:23)
[2022-04-26 01:09] LABS: SARS-COV-2 RT PCR NEGATIVE (NEGATIVE)
--- NOTE | 2022-04-26 02:04 | EDPHYS ---
Physician Documentation [facility] Name: Cindy Albrecht Age: 31 yrs Sex: Female : 1990 Arrival Date: 04/25/2022 Time: 23:18 Bed 5 Private MD: ED Physician Demario Banda HPI: 04/25 23:47 This 31 yrs old Female presents to ER via Unassigned with complaints of Cough, snw Congestion, Shortness Of Breath. 23:47 The patient or guardian reports cough, flu symptoms, low-grade fever, no appetite. snw Onset: The symptoms/episode began/occurred acutely. Severity of symptoms: At their worst the symptoms were moderate, severe. Associated signs and symptoms: Pertinent positives: shortness of breath despite Breo, Albuterol, Zyrtec, and Montelukast. The patient has not experienced similar symptoms in the past. 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 Historical: - Allergies: 04/26 00:16 Amoxicillin; jb4 00:16 PENICILLINS; jb4 - PMHx: 00:16 Anxiety; jb4 - PSHx: 00:16 Knees; jb4 - Immunization history:: Adult Immunizations up to date. - Social history:: Smoking status: unknown. ROS: 04/25 23:46 Constitutional: Negative for fever, chills, and weight loss, Eyes: Negative for injury, snw pain, redness, and discharge, ENT: Negative for injury, pain, and discharge, Neck: Negative for injury, pain, and swelling, Cardiovascular: Negative for chest pain, palpitations, and edema. Abdomen/GI: Negative for abdominal pain, nausea, vomiting, diarrhea, and constipation, Back: Negative for injury and pain, : Negative for injury, bleeding, discharge, and swelling, MS/Extremity: Negative for injury and deformity, Skin: Negative for injury, rash, and discoloration, Neuro: Negative for headache, weakness, numbness, tingling, and seizure. Respiratory: Positive for cough, dyspnea on exertion, orthopnea, shortness of breath, at rest. wheezing, expiratory. Exam: 23:46 Constitutional: This is a well developed, well nourished patient who is awake, alert, snw and in no acute distress. Head/Face: Normocephalic, atraumatic. Eyes: Pupils equal round and reactive to light, extra-ocular motions intact. Lids and lashes normal. Conjunctiva and sclera are non-icteric and not injected. Cornea within normal limits. Periorbital areas with no swelling, redness, or edema. ENT: Nares patent. No nasal discharge, no septal abnormalities noted. Tympanic membranes are normal and external auditory canals are clear. Oropharynx with no redness, swelling, or masses, exudates, or evidence of obstruction, uvula midline. Mucous membranes moist. Neck: Trachea midline, no thyromegaly or masses palpated, and no cervical lymphadenopathy. Supple, full range of motion without nuchal rigidity, or vertebral point tenderness. No Meningismus. Chest/axilla: Normal chest wall appearance and motion. Nontender with no deformity. No lesions are appreciated. Cardiovascular: Regular rate and rhythm with a normal S1 and S2. No gallops, murmurs, or rubs. Normal PMI, no JVD. No pulse deficits. 23:46 Abdomen/GI: Soft, non-tender, with normal bowel sounds. No distension or tympany. No guarding or rebound. No evidence of tenderness throughout. Back: No spinal tenderness. No costovertebral tenderness. Full range of motion. Skin: Warm, dry with normal turgor. Normal color with no rashes, no lesions, and no evidence of cellulitis. MS/ Extremity: Pulses equal, no cyanosis. Neurovascular intact. Full, normal range of motion. Neuro: Awake and alert, GCS 15, oriented to person, place, time, and situation. Cranial nerves II-XII grossly intact. Motor strength 5/5 in all extremities. Sensory grossly intact. Cerebellar exam normal. Normal gait. Psych: Awake, alert, with orientation to person, place and time. Behavior, mood, and affect are within normal limits. 23:46 Respiratory: the patient does not display signs of respiratory distress, Respirations: normal, Breath sounds: are clear throughout. Vital Signs: 04/26 00:14 BP 133 / 89; Pulse 99; Resp 18; Temp 97.7(TE); Pulse Ox 100% on R/A; Weight 77.11 kg jb4 (R); Height 5 ft. 3 in. (160.02 cm) (R); 01:35 BP 123 / 74; Pulse 94; Resp 16; Pulse Ox 99% on R/A; jb4 00:14 Body Mass Index 30.11 (77.11 kg, 160.02 cm) jb4 MDM: 04/25 23:30 Patient medically screened. snw 04/26 02:04 Differential Diagnosis: Bronchitis Upper Respiratory Infection Allergic Rhinitis Asthma snw Exacerbation Pneumonia. Data reviewed: vital signs, nurses notes, lab test result(s), radiologic studies. Counseling: I had a detailed discussion with the patient and/or guardian regarding: the historical points, exam findings, and any diagnostic results supporting the discharge/admit diagnosis, lab results, radiology results, the need for outpatient follow up, to return to the emergency department if symptoms worsen or persist or if there are any questions or concerns that arise at home. Special discussion: Based on the history and exam findings, there is no indication for further emergent testing or inpatient evaluation. I discussed with the patient/guardian the need to see the primary care provider for further evaluation of the symptoms. 04/25 23:37 Order name: COVID-19/FLU A+B/RSV; Complete Time: 01:14 snw 04/25 23:37 Order name: Chest Pa And Lat (2 Views) XRAY snw Administered Medications: 00:22 Drug: Tussionex Pennkinetic ER (chlorpheniramine-hydrocodone) Suspension 5 ml Route: PO;vc1 00:22 Drug: Pepcid (famotidine) 20 mg Route: PO; vc1 02:02 Drug: predniSONE 40 mg Route: PO; jb4 02:02 Not Given (Duplicate Order): Pepcid (famotidine) 20 mg PO once jb4 Disposition: 05:04 Co-signature as Attending Physician, Demario Banda MD. rn Disposition Summary: 04/26/22 02:03 Discharge Ordered Location: Home snw Condition: Stable snw Diagnosis - Unspecified asthma with (acute) exacerbation snw Followup: snw - With: Emergency Department - When: As needed - Reason: Worsening of condition Followup: snw - With: Private Physician - When: 2 - 3 days - Reason: Recheck today's complaints, Continuance of care, Re-evaluation by your physician Discharge Instructions: - Discharge Summary Sheet snw - Asthma, Adult snw - Pulmonary Function Tests snw Forms: - Medication Reconciliation Form snw - Thank You Letter snw - Antibiotic Education snw - Prescription Opioid Use snw Prescriptions: - Prednisone 20 mg Oral Tablet - take 2 tablets by ORAL route once daily for 5 days; 10 tablet; Refills: 0, snw Product Selection Permitted - Pepcid 20 mg Oral Tablet - take 1 tablet by ORAL route once daily; 20 tablet; Refills: 0, Product snw Selection Permitted Signatures: Dispatcher [employer] EDMS Britney Baxter, CHIP WASHER-C CHIP WASHER-Csnw Demario Banda MD MD rn Bryson, James RN RN jb4 Donna Turner RN RN vc1
--- NOTE | 2022-04-26 02:04 | ER ---
Nurse's Notes [facility] Name: Cindy Albrecht Age: 31 yrs Sex: Female : 1990 Arrival Date: 04/25/2022 Time: 23:18 Bed 5 Private MD: Diagnosis: Unspecified asthma with (acute) exacerbation Presentation: 04/26 00:14 Chief complaint: Patient states: I have been having shortness of breath and chest pain jb4 on my left upper chest all day. Coronavirus screen: Client presents with at least one sign or symptom that may indicate coronavirus-19. Standard/surgical mask placed on the client. Ebola Screen: No symptoms or risks identified at this time. Resp Distress? No respiratory distress is noted at this time. Initial Sepsis Screen: Does the patient meet any 2 criteria? HR > 90 bpm. Yes Does the patient have a suspected source of infection? No. Patient's initial sepsis screen is negative. Risk Assessment: Do you want to hurt yourself or someone else? Patient reports no desire to harm self or others. Onset of symptoms was April 26, 2022. Transition of care: patient was not received from another setting of care. 00:14 Method Of Arrival: Ambulatory jb4 00:14 Acuity: MARIA VICTORIA 3 jb4 Historical: - Allergies: 00:16 Amoxicillin; jb4 00:16 PENICILLINS; jb4 - PMHx: 00:16 Anxiety; jb4 - PSHx: 00:16 Knees; jb4 - Immunization history:: Adult Immunizations up to date. - Social history:: Smoking status: unknown. Screenin:16 [facility] [place] ED Fall Risk Assessment (Adult) History of falling in the last 3 months, jb4 including since admission No falls in past 3 months (0 pts) Confusion or Disorientation No (0 pts) Score/Fall Risk Level 0 - 2 = Low Risk Oriented to surroundings, Maintained a safe environment. Abuse screen: Denies threats or abuse. Nutritional screening: No deficits noted. Tuberculosis screening: No symptoms or risk factors identified. Assessment: 00:16 General: Appears in no apparent distress. comfortable, Behavior is calm, cooperative, jb4 appropriate for age. Pain: Complains of pain in anterior aspect of left upper chest Pain does not radiate. Pain currently is 5 out of 10 on a pain scale. Pain began 1 day ago. Neuro: Level of Consciousness is awake, alert, obeys commands, Oriented to person, place, time, situation. Cardiovascular: Patient's skin is warm and dry. Respiratory: Airway is patent Respiratory effort is even, unlabored, Respiratory pattern is regular, symmetrical. GI: No signs and/or symptoms were reported involving the gastrointestinal system. : EENT: No signs and/or symptoms were reported regarding the EENT system. Derm: Skin is intact, Skin is pink, warm \T\ dry. Musculoskeletal: Circulation, motion, and sensation intact. Range of motion: intact in all extremities. 01:22 Reassessment: Patient appears in no apparent distress at this time. Patient and/or jb4 family updated on plan of care and expected duration. Pain level reassessed. Patient is alert, oriented x 3, equal unlabored respirations, skin warm/dry/pink. 02:09 Respiratory: Breath sounds are clear. vc1 Vital Signs: 00:14 BP 133 / 89; Pulse 99; Resp 18; Temp 97.7(TE); Pulse Ox 100% on R/A; Weight 77.11 kg jb4 (R); Height 5 ft. 3 in. (160.02 cm) (R); 01:35 BP 123 / 74; Pulse 94; Resp 16; Pulse Ox 99% on R/A; jb4 00:14 Body Mass Index 30.11 (77.11 kg, 160.02 cm) jb4 ED Course: 04/25 23:18 Patient arrived in ED. jj6 23:26 Britney Baxter [facility]C [facility] snw 23:26 Demario Banda MD is Attending Physician. snw 04/26 00:01 Chest Pa And Lat (2 Views) XRAY In Process Unspecified. EDMS 00:14 Cj Rasheed, CARLOS is Primary Nurse. jb4 00:16 Triage completed. jb4 00:16 Arm band placed on right wrist. jb4 00:16 Patient has correct armband on for positive identification. Bed in low position. Call jb4 light in reach. Side rails up X 1. Client placed on continuous cardiac and pulse oximetry monitoring. NIBP monitoring applied. 02:09 No provider procedures requiring assistance completed. Patient did not have IV access vc1 during this emergency room visit. Administered Medications: 00:22 Drug: Tussionex Pennkinetic ER (chlorpheniramine-hydrocodone) Suspension 5 ml Route: PO;vc1 00:22 Drug: Pepcid (famotidine) 20 mg Route: PO; vc1 02:02 Drug: predniSONE 40 mg Route: PO; jb4 02:02 Not Given (Duplicate Order): Pepcid (famotidine) 20 mg PO once jb4 Medication: 00:16 VIS not applicable for this client. jb4 Outcome: 02:03 Discharge ordered by MD. thomas 02:09 Discharged to home ambulatory, with significant other. vc1 02:09 Condition: good 02:09 Discharge instructions given to patient, Instructed on discharge instructions, follow up and referral plans. medication usage, Demonstrated understanding of instructions, follow-up care, medications, Prescriptions given X 2. 02:09 Patient left the ED. vc1 Signatures: Dispatcher [employer] EDMS Britney Baxter, THERAPIST RADIATION-C THERAPIST RADIATION-Csnw Cj Rasheed RN RN jb4 Katina Barraganj6 Donna Turner RN RN vc1
[2022-04-26] MEDS ORDERED: predniSONE 20 MG TAB ONE (02:05)
[2022-04-26 03:11] VITALS: TEMP 97.7
[2022-04-26 03:12] VITALS: BP 123/74; O2SAT 99
--- NOTE | 2022-04-26 20:08 | RAD REPORT ---
EXAM DESCRIPTION: RAD - Chest Pa And Lat (2 Views) - 04/26/2022 12:00 am CLINICAL HISTORY: The patient is 31 years old and is Female; DYSPNEA TECHNIQUE: Frontal and lateral views of the chest. COMPARISON: No relevant prior studies available. FINDINGS: Lungs: Unremarkable. No consolidation. Pleural space: Unremarkable. No pneumotho rax. Heart: Unremarkable. Mediastinum: Unremarkable. Bones/joints: Unremarkable. IMPRESSION: No acute findings in the chest. Electronically signed by: Roland Lomas MD 04/26/2022 12:19 AM [employer] Due to temporary technical issues with the PACS/Fluency reporting system, reports are being signed by the in house radiologists without review as a courtesy to insure prompt reporting. The interpreting radiologist is fully responsible for the content of the report.
== END 2022-04-26 02:09 | disposition home or self-care (01) ==
LOC: ER 23:13
DX: J45.901 Unspecified asthma with (acute) exacerbation (principal)
CPT/HCPCS: 0241U; 71046; 99283; J7512

== ENCOUNTER 2022-09-12 21:56 | Emergency (ER) | payer BC, SELFPAY ==
--- OUTSIDE RECORDS SUMMARY | 2022-09-12 22:01 | XMS REPORT | Continuity of Care Document ---
:1990 Author Organization [facility] t Address [address] [facility] [address] [place] [address] Care Team Providers Name Role Phone PCP, PATIENT DOES NOT HAVE A Primary Care Physician Unavaila ble ENOCH KONG Attending Clinician Unavailable LAB90 Attending Clinician Unavailable AMANDEEP EARL Attending Clinician Unavailable REA BLAS Attending Clinician Unavailable TESTING, LJ COVID CUREDNAIDE Attending Clinician Unavailable AC CORTEZ Attending Clinician Unavailable Ac Cortez MD Attending Clinician Doctor Unassigned, [place] Attending Clinician Unavailable Enoch Kong DO Attending Clinician Ritika Preciado MD Attending Clinician RITIKA PRECIADO Attending Clinician Unavailable Freddie Medley Attending Clinician AC CORTEZ Admitting Clinician Unavailable Payers Payer Name Policy Type Policy Number Effective Date Expiration Date Davida wesley [facility] 2 [id number] 2022 00:00:00 [facility] [id number] 2022 00:00:00 [employer] 2 [id number] 2021 00:00:00 Problems Condition Condition Condition Status Onset Resolution Last Treating Co mments Source Name Details Category Date Date Treatment Clinician Date Well adult Well adult Disease Active K franco exam exam 09-11 Seybold 00:00: - 00 Externa l Palpitatio Palpitatio Disease Active K elseshyam ns ns 08-09 Seybold 00:00: - 00 Externa l Anxiety Anxiety Disease Active Rocío 08-09 Seybold 00:00: - 00 Externa l Class 1 Class 1 Disease Active Rocío obesity obesity 07-23 Seybold due to due to 00:00: - excess excess 00 Externa calories calories l without without serious serious comorbidit comorbidit y with y with body mass body mass index index (BMI) of (BMI) of 32.0 to 32.0 to 32.9 in 32.9 in adult adult Prediabete Prediabete Disease Active Overview : Rocío rmoero s 4-15 Formattin Seybold 00:00: g of this - 00 note Externa might be l different from the original. Lab 06/2021 A1c 5.7 Acute Acute Disease Active Rocío non-recurr non-recurr 4-04 Se ybold ent ent 00:00: - maxillary maxillary 00 Exte rna sinusitis sinusitis l Seasonal Seasonal Disease Active Kelse y allergic allergic 4-04 Seybol d rhinitis rhinitis 00:00: - due to due to 00 Externa pollen pollen l Migraine Migraine Disease Active Osmarse y with aura with aura 4-04 Seyb old and and 00:00: - without without 00 Externa status status l migrainosu migrainosu s, not s, not intractabl intractabl e e Simple Simple Problem Active 2019-01-23 Rip siobhan obesity obesity 01:15:25 l (disorder) (disorder) He rmann Active Problem 01/23/2019 Medical Group Allergies, Adverse Reactions, Alerts Allergy Allergy Status Severity Reaction(s) Onset Inactive Treating Comm ents Source Name Type Date Date Clinician Penicill Propensi Active Anaphylaxis 2020-0 U nivers in ty to 05 ity of adverse 00:00: [place] reaction 00 Medical s Branch AMOXICIL DRUG Active Anaphylaxis 0 Uni vers TONYA INGREDI 08-19 ity of 00:00: [place] 00 Medical Branch PENICILL DRUG Active Anaphylaxis 2019-0 Uni vers IN INGREDI 6-05 ity of 00:00: [place] 00 Medical Branch Amoxicil Propensi Active Anaphylaxis 2020-0 U nivers tonya ty to 6-05 ity of adverse 00:00: [place] reaction 00 Medical s Branch Amoxicil Propensi Active Anaphylaxis 2018-0 K elsey tonya ty to 12-03 Seybold adverse 00:00: - reaction 00 Externa s l Penicill Propensi Active Anaphylaxis 2018-0 K elsey ins ty to 12-03 Seybold adverse 00:00: reaction 00 s Penicill Propensi Active Anaphylaxis 2018-0 K elsey ins ty to 12-03 Seybold adverse 00:00: - reaction 00 Externa s l penicill penicill Active Memori a ins ins l [place] amoxicil amoxicil Active Memori a tonya tonya l [place] Social History Social Habit Start Date Stop Date Quantity Comments Source History SDOH Rocío alexis Alcohol Frequency History SDOH Rocío alexis Alcohol Std Drinks History SDOH Rocío alexis Alcohol Binge Gender identity Rocío gilbert - External Sexual orientation Rocío Mireles - External Alcohol Comment 2022-09-11 2022-09-11 rarely Rocío gilbert - 00:00:00 00:00:00 External Alcohol intake 2022-09-11 2022-09-11 Current drinker Martha Mireles - 00:00:00 00:00:00 of alcohol External (finding) History of Social 2022-07-29 2022-07-29 Rocío Mireles - function 00:00:00 00:00:00 External Exposure to 2022-07-10 2022-07-20 Not sure University of SARS-CoV-2 (event) 00:00:00 21:20:00 [facility] Education 2021-06-18 2021-06-18 16 Rocío Mireles - 00:00:00 00:00:00 External Tobacco use and 2021-06-18 2021-06-18 Smokeless Rocío garzaold - exposure 00:00:00 00:00:00 tobacco non-user External Social History 2019-01-20 2019-01-20 Estefany escalante 21:02:06 21:02:06 Sex [birth year] At [birth year] Rocío gilbert - 00:00:00 00:00:00 External Smoking Status Start Date Stop Date Source Never smoked tobacco Rocío Seyb old - External Medications Ordered Filled Start Stop Current Ordering Indication Dosage Frequency Signature Comments Components Source Medication Medication Date Date Medication? Clinician (SIG) Name Name ALBUTEROL Yes 2{puff} [id number] Inhale 2 Rocío SULFATE HFA 09-11 [id number] puffs into Seybold IN 14:26: 3D the lungs - 47 every 8 Externa hours as l needed for shortness of breath ALBUTEROL 2022- No 2{puff} Q.[id number] Inhale 2 Rocío IN 09-11 06- [id number] puffs into Se ybold 14:26: 00:00 3D the lungs - 21 :00 3 times Externa daily as l needed Metformin Yes [id number] 500mg Take 1 Rocío HCl 500 MG - tablet Seybold oral Tablet 00:00: (500 mg - 00 total) by Externa mouth l daily (with breakfast) Montelukast Yes [id number] 10mg QD Take 1 Rocío (Singulair) -28 tablet (10 Se ybold 10 MG oral 00:00: mg total) - Tablet 00 by mouth Externa tablet nightly as l needed FLUTICASONE Yes [id number] 50ug QD Use 1 K elsey PROPIONATE, 6- spray (50 Sey bold NASAL, 50 00:00: mcg total) - MCG/ACT 00 in each Externa nasal nostril l Suspension daily as needed for rhinitis Fluticasone Yes [id number] 1{puff} Inhale 1 Rocío Furoate-Sushant - puff into Sey bold anterol 00:00: the lungs - (Breo 00 daily Externa Ellipta) l 100-25 MCG/ACT inhalation AEROSOL POWDER, BREATH ACTIVATED ALBUTEROL Yes 2{puff} Q.[id number] Inhale 2 Rocío IN 08-09 [id number] puffs into Sey bold 15:08: 3D the lungs - 27 3 times Externa daily as l needed Alprazolam 2022- No .5mg QD Take 1 Niya ey 0.5 MG oral 08-09 05-26 tablet Seybo ld Tablet 07:48: 00:00 (0.5 mg - 50 :00 total) by Externa mouth l nightly as needed Benzonatate 2022-0 Yes [id number] 100mg Q.[id number] Take 1 Rocío (Tessalon - [id number] capsule S celeste Vega) 100 00:00: 3D (100 mg - MG oral 00 total) by Externa Capsule mouth 3 l times daily as needed for cough Azithromyci 2022- No [id number] Take 2 Rocío n 250 MG -09 09- tablets by Seyb old oral Tablet 00:00: 00:00 mouth on - 00 :00 day 1 then Externa 1 tablet l by mouth daily for 4 days thereafter . Benzonatate 2022- No [id number] 100mg Q.[id number] Take 1 Rocío (Tessalon 5-09 09- [id number] capsule ybold Silvia) 100 00:00: 00:00 3D (100 mg - MG oral 00 :00 total) by Externa Capsule mouth 3 l times daily as needed for cough Azithromyci 2022- Yes [id number] Take 2 Rocío n 250 MG -09 09- tablets by Seyb old oral Tablet 00:00: 04:59 mouth on : day 1 then Externa 1 tablet l by mouth daily for 4 days thereafter . Alprazolam Yes .5mg QD Take 1 Kelse y 0.5 MG oral 5-15 tablet Seybol d Tablet 14:36: (0.5 mg - 17 total) by Externa mouth l nightly as needed ALBUTEROL Yes 2{puff} Q.[id number] Inhale 2 Rocío IN 5-15 [id number] puffs into Sey bold 14:36: 3D the lungs - 17 3 times Externa daily as l needed ibuprofen 2022-0 2022- No 600mg 600 mg, Uni vers (IBU) 07-21 05-07 Oral, ity of tablet 600 03:00: 03:02 ONCE, 1 Juan Pablo as mg 00 :00 dose, On Medical 07/20/22 Branch at 2200, LISBET ibuprofen 2022-0 Yes [id number] 600mg Take 1 Univers 600 mg 07-20 [id number] tablet by ity of tablet 00:00: mouth [place] 00 every 6 Medical (six) Branch hours as needed for Pain (scale 4-6). ALBUTEROL 2021-0 Yes 2{puff} Q.[id number] Inhale 2 Rocío IN 07-23 [id number] puffs into Sey bold 11:13: 3D the lungs 07 3 times daily as needed Alprazolam 2021-0 Yes .5mg QD Take 0.5 Osmar sey 0.5 MG oral 5-09 mg by Seybold Tablet 11:04: mouth 06 nightly as needed Montelukast 2021-0 Yes [id number] 10mg Take 1 Rocío (Singulair) -09 tablet (10 Se ybold 10 MG oral 00:00: mg total) Tablet 00 by mouth tablet nightly Montelukast 2021-0 Yes [id number] 10mg Take 1 Rocío (Singulair) 5-09 tablet (10 Se ybold 10 MG oral 00:00: mg total) - Tablet 00 by mouth Externa tablet nightly l Montelukast 2021-0 Yes [id number] 10mg Take 1 Rocío (Singulair) 5-09 tablet (10 Se ybold 10 MG oral 00:00: mg total) - Tablet 00 by mouth Externa tablet nightly l Montelukast 2021-0 2023- No [id number] 10mg Take 1 Rocío (Singulair) - 06-28 tablet (10 S eybold 10 MG oral 00:00: 00:00 mg total) - Tablet 00 :00 by mouth Externa tablet nightly l Alprazolam 2021-0 Yes .5mg QD Take 0.5 Osmar sey 0.5 MG oral 4-04 mg by Seybold Tablet 11:17: mouth 38 nightly as needed Azithromyci 2021-0 Yes [id number] Take 2 Rocío n 250 MG 4-04 tablets by Seybo ld oral Tablet 00:00: mouth on 00 day 1 then 1 tablet by mouth daily for 4 days thereafter . Cetirizine 2021-0 Yes [id number] 10mg Take 1 K elsey HCl (ZyrTEC 4-04 capsule Seybo ld Allergy) 10 00:00: (10 mg MG oral 00 total) by Capsule mouth daily FLUTICASONE 2021-0 Yes [id number] 50ug Use 1 K elsey PROPIONATE, 4-04 spray (50 Sey bold NASAL, 50 00:00: mcg total) MCG/ACT 00 in each nasal nostril Suspension daily Cetirizine 2021-0 Yes [id number] 10mg Take 1 K elsey HCl (ZyrTEC 4-04 capsule Seybo ld Allergy) 10 00:00: (10 mg MG oral 00 total) by Capsule mouth daily FLUTICASONE 2021-0 Yes [id number] 50ug Use 1 K elsey PROPIONATE, 4-04 spray (50 Sey bold NASAL, 50 00:00: mcg total) MCG/ACT 00 in each nasal nostril Suspension daily Cetirizine 2021-0 Yes [id number] 10mg Take 1 K elsey HCl (ZyrTEC 4-04 capsule Seybo ld Allergy) 10 00:00: (10 mg - MG oral 00 total) by Externa Capsule mouth l daily FLUTICASONE 2021-0 Yes [id number] 50ug Use 1 K elsey PROPIONATE, 4-04 spray (50 Sey bold NASAL, 50 00:00: mcg total) - MCG/ACT 00 in each Externa nasal nostril l Suspension daily Cetirizine 2021-0 Yes [id number] 10mg Take 1 K elsey HCl (ZyrTEC 4-04 capsule Seybo ld Allergy) 10 00:00: (10 mg - MG oral 00 total) by Externa Capsule mouth l daily FLUTICASONE 2021-0 Yes [id number] 50ug Use 1 K elsey PROPIONATE, 4-04 spray (50 Sey bold NASAL, 50 00:00: mcg total) - MCG/ACT 00 in each Externa nasal nostril l Suspension daily Cetirizine 2021-0 2023- No [id number] 10mg Take 1 Rocío HCl (ZyrTEC 4-04 06-28 capsule Seyb old Allergy) 10 00:00: 00:00 (10 mg - MG oral 00 :00 total) by Externa Capsule mouth l daily FLUTICASONE 2-0 2023- No [id number] 50ug Use 1 Rocío PROPIONATE, 4-04 06-28 spray (50 Se ybold NASAL, 50 00:00: 00:00 mcg total) - MCG/ACT 00 :00 in each Externa nasal nostril l Suspension daily Azithromyci 2021- No [id number] Take 2 Rocío n 250 MG 4-04 05-09 tablets by Seyb old oral Tablet 00:00: 00:00 mouth on 00 :00 day 1 then 1 tablet by mouth daily for 4 days thereafter . sucralfate 0 Yes [id number] 1g Take 1 U nivers 1 gram 4-22 tablet by ity of tablet 00:00: mouth [place] 00 before Medical meals and Branch at bedtime. ondansetron 0 Yes [id number] 4mg Take 1 Univers 4 mg 4-22 tablet by ity of disintegrat 00:00: mouth [place] ing tablet 00 every 4 Medica l (four) Branch hours as needed for Nausea and Vomiting (N/V). pantoprazol Yes [id number] 40mg Take 1 Univers e 40 mg EC 4-22 tablet by ity of tablet 00:00: mouth [place] 00 daily. Medical Branch sucralfate 0 Yes [id number] 1g Take 1 U nivers 1 gram 4-22 tablet by ity of tablet 00:00: mouth [place] 00 before Medical meals and Branch at bedtime. ondansetron 0 Yes [id number] 4mg Take 1 Univers 4 mg 4-22 tablet by ity of disintegrat 00:00: mouth [place] ing tablet 00 every 4 Medica l (four) Branch hours as needed for Nausea and Vomiting (N/V). pantoprazol 0 Yes [id number] 40mg Take 1 Univers e 40 mg EC 4-22 tablet by ity of tablet 00:00: mouth [place] 00 daily. Medical Branch sucralfate 0 Yes [id number] 1g Take 1 U nivers 1 gram 4-22 tablet by ity of tablet 00:00: mouth [place] 00 before Medical meals and Branch at bedtime. ondansetron 0 Yes [id number] 4mg Take 1 Univers 4 mg 4-22 tablet by ity of disintegrat 00:00: mouth [place] ing tablet 00 every 4 Medica l (four) Branch hours as needed for Nausea and Vomiting (N/V). pantoprazol 0 Yes [id number] 40mg Take 1 Univers e 40 mg EC 4-22 tablet by ity of tablet 00:00: mouth [place] 00 daily. Medical Branch Immunizations Ordered Immunization Filled Immunization Date Status Commen ts Source Name Name Pneumococcal 2021-07-19 Completed Rocío Llanes ld Vaccine, Conjugate 00:00:00 - Exte rnal 20 Pneumococcal 2021-07-19 Completed Rocío Torreso ld Vaccine, Conjugate 00:00:00 - Exte rnal 20 Pneumococcal 2021-07-19 Completed Rocío Torreso ld Vaccine, Conjugate 00:00:00 - Exte rnal 20 influenza virus 2019-01-20 [facility]pleted [facility], 22:15:00 [place] inactivated<sup>1</s up> influenza virus 2019-01-20 Completed [facility] vaccine, 22:15:00 [place] inactivated<sup>1</s up> influenza virus 2019-01-20 Completed [facility] vaccine, 22:15:00 [place] inactivated<sup>1</s up> influenza virus 2019-01-20 Completed [facility] vaccine, 22:15:00 [place] inactivated<sup>1</s up> influenza virus 2019-01-20 Completed [facility] vaccine, 22:15:00 [place] inactivated<sup>1</s up> influenza virus 2019-01-20 Completed [facility] vaccine, 22:15:00 [place] inactivated<sup>1</s up> influenza virus 2019-01-20 Completed [facility] vaccine, 22:15:00 [place] inactivated<sup>1</s up> Influenza Virus 2019-01-20 Completed Rocío Chan ybold Vaccine, No Preserv, 00:00:00 - Ex ternal age 6 months and up Influenza Virus 2019-01-20 Completed Rocío Se ybold Vaccine, No Preserv, 00:00:00 age 6 months and up Influenza Virus 2019-01-20 Completed Rocío Se ybold Vaccine, No Preserv, 00:00:00 age 6 months and up Influenza Virus 2019-01-20 Completed Rocío Se ybold Vaccine, No Preserv, 00:00:00 - Ex ternal age 6 months and up Influenza Virus 2019-01-20 Completed Rocío Se ybold Vaccine, No Preserv, 00:00:00 - Ex ternal age 6 months and up Vital Signs Vital Name Observation Time Observation Value Comments Source Body weight 2022-09-11 19:29:00 82.555 kg Rocío Romero eybold - External BMI 2022-09-11 19:29:00 32.24 kg/m2 Rocío Romero eybold - External Systolic blood 2022-09-11 19:09:00 124 mm[Hg] Rocío Chanybold - pressure External Diastolic blood 2022-09-11 19:09:00 82 mm[Hg] Martha howe Seybold - pressure External Body temperature 2022-09-11 19:09:00 37.22 Jailyn Niya weston Seybold - External Respiratory rate 2022-09-11 19:09:00 14 /min Niya weston Seybold - External Body height 2022-09-11 19:09:00 160 cm Rocío Romero eybold - External Oxygen saturation 2022-09-11 19:09:00 99 /min Osmar Mireles - in Arterial blood External by Pulse oximetry Heart rate 2022-08-09 20:05:00 105 /min Rocío Romero eybold - External Body temperature 2022-08-09 20:05:00 36.44 Jailyn Niya weston Seybold - External Respiratory rate 2022-08-09 20:05:00 20 /min Niya weston Seybold - External Body weight 2022-08-09 20:05:00 60.238 kg Rocío Romero eybold - External BMI 2022-08-09 20:05:00 23.52 kg/m2 Rocío westonbold - External Oxygen saturation 2022-08-09 20:05:00 100 /min Osmar Mireles - in Arterial blood External by Pulse oximetry Systolic blood 2022-08-09 20:05:00 110 mm[Hg] Rocío Chanybold - pressure External Diastolic blood 2022-08-09 20:05:00 80 mm[Hg] Martha howe Seybold - pressure External Systolic blood 2022-07-21 04:14:51 116 mm[Hg] Univer sity [facility] Diastolic blood 2022-07-21 04:14:51 75 mm[Hg] Unive rsity [facility] Heart rate 2022-07-21 04:14:51 93 /min [facility] Respiratory rate 2022-07-21 04:14:51 16 /min [facility] Oxygen saturation 2022-07-21 04:14:51 98 /min Uni versity of in Arterial blood [facility] by Pulse oximetry Doon Body temperature 2022-07-21 02:20:[address] [facility] [place] [place] [facility] Body height 2022-07-21 02:20:00 160 [facility] Body weight 2022-07-21 02:20:00 75.297 kg [facility] BMI 2022-07-21 02:20:00 29.41 kg/m2 [facility] Systolic blood 2021-07-23 16:03:00 124 mm[Hg] Rocío Seybold pressure Diastolic blood 2021-07-23 16:03:00 82 mm[Hg] Kelse y Seybold pressure Heart rate 2021-07-23 16:03:00 107 /min Rocío S eybold Body temperature 2021-07-23 16:03:00 36.72 Jailyn Niya ey Seybold Respiratory rate 2021-07-23 16:03:00 14 /min Niya ey Seybold Body height 2021-07-23 16:03:00 160 cm Rocío S eybold Body weight 2021-07-23 16:03:00 82.192 kg Rocío S eybold BMI 2021-07-23 16:03:00 32.10 kg/m2 Rocío S eybold Systolic blood 2021-06-18 16:12:00 120 mm[Hg] Rocío Seybold pressure Diastolic blood 2021-06-18 16:12:00 83 mm[Hg] Kelse y Seybold pressure Heart rate 2021-06-18 16:12:00 87 /min Rocío S eybold Body temperature 2021-06-18 16:12:00 36.56 Jailyn Niya ey Seybold Respiratory rate 2021-06-18 16:12:00 14 /min Niya ey Seybold Body height 2021-06-18 16:12:00 160 cm Rocío S eybold Body weight 2021-06-18 16:12:00 82.373 kg WITH SHOES Rocío S eybold BMI 2021-06-18 16:12:00 32.17 kg/m2 Rocío S eybold Oxygen saturation 2021-06-18 16:12:00 99 /min Osmar Mireles in Arterial blood by Pulse oximetry Heart rate 2020-07-06 17:00:00 75 /min [facility] Oxygen saturation 2020-07-06 17:00:00 99 /min Uni versity of in Arterial blood [facility] by Pulse oximetry Branch Systolic blood 2020-07-06 17:00:00 119 mm[Hg] Univer sity of pressure [facility] Diastolic blood 2020-07-06 17:00:00 74 mm[Hg] Unive rsity [facility] Body temperature 2020-07-06 15:52:[address] [facility] [place] [facility] Respiratory rate 2020-07-06 15:52:00 18 /min [facility] Body weight 2020-07-06 15:52:00 74.39 kg [facility] Diastolic (mm Hg) 2019-01-20 21:01:00 Parvez Yin Heart Rate 2019-01-20 21:01:00 [facility] Temperature Oral 2019-01-20 21:01:00 98.8 F Rip Yin (F) Height 2019-01-20 21:01:00 160.02 cm [facility] Weight 2019-01-20 21:01:00 [facility] BMI Calculated 2019-01-20 21:01:00 Tricia Gu Systolic (mm Hg) 2019-01-20 21:01:00 Rip Yin Procedures Procedure Date / Time Performing Clinician Source Performed POCT TEST 2022-07-21 03:03:00 Ac Cortez [facility] CONSENT/REFUSAL FOR 2022-07-21 02:15:45 Doctor Unassigned, No Un [facility] DIAGNOSIS AND TREATMENT Name Medical Doon US GALL BLADDER 2020-07-06 16:24:48 Ritika Preciado [facility] LIPASE 2020-07-06 16:07:00 Preciado Ritika [facility] HEPATIC FUNCTION PANEL 2020-07-06 16:07:00 Ritika Preciado [facility] ([id number]) (ALB,T.PRO,BILI Medical Branch T,BU/BC,ALT,AST,ALK PHOS) BASIC METABOLIC PANEL 2020-07-06 16:07:00 Ritika Preciado [facility] (NA, K, CL, CO2, Medical Branch GLUCOSE, BUN, CREATININE, CA) CBC WITH DIFF 2020-07-06 16:07:00 Ritika Preciado [facility] PROTHROMBIN TIME / INR 2020-07-06 16:07:00 Ritika Preciado [facility] ACTIVATED PARTIAL 2020-07-06 16:07:00 Ritika Preciado [facility] THRMPLAS SHANAE [facility] URINALYSIS 2020-07-06 16:07:00 Ritika Preciado [facility] POCT TEST 2020-07-06 16:05:00 Ritika Preciado [facility] NOTICE OF PRIVACY 2020-07-06 15:24:21 Doctor Unassigned, No Univ [facility] PRACTICES Name [facility] CONSENT/REFUSAL FOR 2020-07-06 15:24:11 Doctor Unassigned, No Un [facility] DIAGNOSIS AND TREATMENT Name [facility] Injury of right 2018-12-18 05:00:00 [facility] Her preston ankle<sup>1</sup> Injury of left knee Estefany preston Encounters Start End Encounter Admission Attending Care Care Encounter Source Date/Time Date/Time Type Type Clinicians Facility Department ID 2022-12-12 2022-12-12 Outpatient ROCÍO KONG [id number] Rocío 15:30:00 15:30:00 ENOCH Seybol d 2022-09-12 2022-09-12 Outpatient ROCÍO KONG [id number] Rocío 00:00:00 00:00:00 ENOCH Seybol d 2022-09-12 2022-09-12 Outpatient ROCÍO KONG [id number] Rocío 00:00:00 00:00:00 ENOCH Seybol d 2022-09-11 2022-09-11 Outpatient LAB90 ROCÍO BLAND [id number] Rocío 15:15:00 15:15:00 Seybol d 2022-09-11 2022-09-11 Outpatient ROCÍO KONG [id number] Rocío 14:30:00 14:30:00 ENOCH Seybol d 2022-08-25 2022-08-25 Outpatient PREZAS, ROCÍO BLAND [id number] Rocío 00:00:00 00:00:00 ENOCH Seybol d 2022-08-19 2022-08-19 Outpatient PREZAS, ROCÍO BLAND [id number] Rocío 00:00:00 00:00:00 ENOCH Seybol d 2022-08-19 2022-08-19 Outpatient PREZAS, ROCÍO BLAND [id number] Rocío 00:00:00 00:00:00 ENOCH Seybol d 2022-08-16 2022-08-16 Outpatient PREZAS, ROCÍO BLAND [id number] Rocío 00:00:00 00:00:00 ENOCH Seybol d 2022-08-14 2022-08-14 Outpatient LAB90 ROCÍO BLAND [id number] Rcoío 08:05:00 08:05:00 Seybol d 2022-08-09 2022-08-09 Outpatient PREZAS, ROCÍO BLAND [id number] Rocío 15:00:00 15:00:00 ENOCH Seybol d 2022-07-30 2022-07-30 Outpatient HUNDL, ROCÍO BLAND [id number] Rocío 11:00:00 11:00:00 AMANDEEP Seybol d 2022-07-29 2022-07-29 Outpatient QUDDOSROCÍO [id number] Rocío 15:15:00 15:15:00 FIRAS Seybol d 2022-07-29 2022-07-29 Outpatient TESTING, LJ ROCÍO BLAND [id number] Rocío 14:50:00 14:50:00 Seybol d 2022-07-29 2022-07-29 Outpatient QUDDOSROCÍO [id number] Rocío 00:00:00 00:00:00 FIRAS Seybol d 2022-07-20 2022-07-20 Emergency X VASUT, [facility] ERT [id number] Univers 21:23:00 23:21:[address] [facility] 2022-07-20 2022-07-20 Emergency Vasut, [facility] [id number] Univers 21:23:00 23:21:00 Ac LINDA [id number] i ty of [place] 4.2.7.2.686 [place] [facility] [id number] [facility] 084 Branch 2022-07-20 2022-07-20 Orders Doctor LUCRECIA [id number] Univers 00:00:00 00:00:00 Only Unassigned, JOVANY [id number] [facility] 4.2.7.2.686 Juan Pablo [id number] [facility] 009 Branch 2021-08-02 2021-08-02 Outpatient ROCÍO KONG [id number] Rocío 00:00:00 00:00:00 ENOCH Seybol d 2021-07-23 2021-07-23 Office TessaOdell romero [id number] Rocío 11:00:00 11:15:00 Visit Enoch Flores [id number] Se ybold [id number] 2021-07-17 2021-07-17 Outpatient ROCÍO KONG [id number] Rocío 09:30:00 09:30:00 ENOCH Seybol d 2021-06-28 2021-06-28 Outpatient LAB90 ROCÍO BLAND [id number] Rocío 09:55:00 09:55:00 Segregol marjorie 2021-06-18 2021-06-18 Outpatient ROCÍO KONG [id number] Rocío 13:30:00 13:30:00 ENOCH Seybol d 2021-06-18 2021-06-18 Office TessaOdell romero [id number] Rocío 11:15:00 11:45:00 Visit Enoch Flores [id number] Se ybold [id number] 2021-06-18 2021-06-18 Outpatient ROCÍO KONG [id number] Rocío 00:00:00 00:00:00 ENOCH Seybol d 2020-07-06 2020-07-06 Emergency Ozzy [place] [id number] Univers 10:54:00 12:10:00 Ritika Linda [id number] i Melissa 4.2.7.2.686 [facility] [id number] [address] 2020-07-06 2020-07-06 Emergency X OZZY [facility] ERT [id number] Univers 10:54:00 10:54:[address] [facility] 2019-01-20 2019-01-21 Outpatient nullFlavo [facility] [id number] Memoria 21:30:00 05:59:59 r Primary 00 l Care [facility] 2019-01-20 2019-01-21 Outpatient nullFlavo [facility] [id number] Memoria 21:30:00 05:59:59 r Primary 00 l Care [facility] 2019-01-20 2019-01-20 Outpatient Gal[facility] [id number] 15:30:00 23:59:59 Ranjeet 2019-01-20 2019-01-20 Outpatient IE IE [id number] 15:30:00 15:30:00 00 l [place] Results Test Description Test Time Test Comments Results Result Comments Source POCT TEST 2022-07-21 03:03:00 Test Item Value Reference Range Interpretation Comme nts POCT PREG (test code = 1605) Negative On board controls acceptable with C Line (test code = 3574) Present POCT PREG LOT # (test code = 3575) [id number] POCT PREG TEST DATE (test code = 3576) 04/16/2023 Lab Interpretation (test code = 97175-2) Normal [facility] 16:40[facility]09 Test Item Value Reference Range Interpretation Comments APTT Patient (test See_Comment [Automat ed code = 3173-2) message] The system which generated this result transmitted reference range : 23 - 38 Seconds . The reference range was not used to interpr et this result as normal/abnormal . BOBY (test code = BOBY) The [facility] patient population mean normal value for aPTT is 30 seconds. Lab Interpretation Normal (test code = 03421-7) [facility] (PT[facility] / [id number] 16:37:46 Test Item Value Reference Range Interpretation Comments PROTIME PATIENT (test See_Comment [Auto mated message] code = 5964-2) The system [employer] generated this result transmitted ref erence range: 12.0 - 1 4.7 Seconds. The re ference range was not u sed to interpret this result as normal/abnor mal. INR (test code = 6301-6) Nor mal INR <1.1; Warfarin Therap eutic range 2.0 to 3. 0 or 2.5 to 3.5, dep ending upon the indica tions. Lab Interpretation (test Normal code = 39942-2) [facility] 16:31:47 Test Item Value Reference Range Interpretation Comments APPEARANCE (test code = Clear Clear 1859713491) COLOR (test code = Yellow Yellow 0506218188) PH (test code = 4.8-8.0 1607910224) SP GRAVITY (test code = 1.003-1.030 3101690542) GLU U QUAL (test code = Normal Normal 3318583148) BLOOD (test code = Negative Negative 3593331920) KETONES (test code = Negative Negative 7205381570) PROTEIN (test code = Negative Negative 2887-8) UROBILIN (test code = Normal Normal 1235784220) BILIRUBIN (test code = Negative Negative 6914295558) NITRITE (test code = Negative Negative 1779080529) LEUK MARY (test code = 25/uL Negative A 7422280180) RBC/HPF (test code = See_Comment [Autom ated message] 1795276086) The system [employer] generated this result transmitted ref erence range: 0 - 3 HP F. The reference range was not used to int erpret this result as normal/abnormal . WBC/HPF (test code = See_Comment [Autom ated message] 5167143447) The system [employer] generated this result transmitted ref erence range: 0 - 5 HP F. The reference range was not used to int erpret this result as normal/abnormal . BACTERIA (test code = Negative Negative 4111205537) MUCOUS (test code = Slight Negative LPF A 6384038839) SQ EPITH (test code = HPF 7484963431) Lab Interpretation (test Abnormal code = 94596-9) [facility] Metabolic Panel (NA, K, CL, CO2, GLUCOSE, BUN, CREATININE, CA)2020-07-06 16:27:48 Test Item Value Reference Range Interpretation Comments NA (test code = 140 mmol/L 135-145 7564662625) K (test code = 4.1 mmol/L 3.5-5.0 2694183397) CL (test code = 104 mmol/L 98-108 6279639858) CO2 TOTAL (test code 28 mmol/L 23-31 = 1337775146) AGAP (test code = 2-16 0635987506) BUN (test code = 15 mg/dL 7-23 7691559501) GLUCOSE (test code = 100 mg/dL 70-110 1691039097) CREATININE (test code 0.73 mg/dL 0.50-1.04 = 7083590752) CALCIUM (test code = 9.3 mg/dL 8.6-10.6 3328066765) eGFR (test code = mL/min/1.73m2 1493862465) BOBY (test code = BOBY) Association of [...] or urine or abnormalities in imaging tests). [facility] (ALB, T.PRO, BILI T, BU/BC, ALT, AST, ALK PHOS)2020-07-06 16:27:48 Test Item Value Reference Range Interpretation Comments TOTAL BILI (test code = 0723628505) 0.4 mg/dL 0.1-1.1 BILI UNCON (test code = 2939262288) 0.4 mg/dL 0.1-1.1 BILI CONJ (test code = 2570750486) 0.0 mg/dL 0.0-0.3 T PROTEIN (test code = 5203963296) 7.6 g/dL 6.3-8.2 ALBUMIN (test code = 1721559488) 4.6 g/dL 3.5-5.0 ALK PHOS (test code = 1815814850) 77 U/L 34-122 ALTv (test code = 1742-6) 22 U/L 5-35 AST(SGOT) (test code = 8805581584) 25 U/L 13-40 Lab Interpretation (test code = Normal 36842-3) [facility] CenterLipase [id number] 16:27:48 Test Item Value Reference Range Interpretation Comments LIPASE (test code = 2461166926) 53 U/L 0-220 Lab Interpretation (test code = Normal 35851-3) [facility] CenterUS GALL [id number] 16:26:11HISTORY: RUQ Abdominal pain. TECHNIQUE: Gallbladder is evaluated in multiple planes with the patientindifferent positions. Color imaging is utilized. FINDINGS: Gallbladder is partially contracted but no edema or thickening ofthe verduzco seen. No gallstones. No biliary sludge or crystals seen. No freefluid detected in pericholecystic space. Common hepatic duct is 2.8 mm.Hepatic and portal venous systemappeared patent. CONCLUSION: Essentially normal study. Nmmb, Radiant Results Inft User - 07/06/2020 11:27 [...] venous system appeared patent. CONCLUSION: Essentially normal study.[facility] CBC with [id number] 16:14:04 Test Item Value Reference Range Interpretation Comments WBC (test code = See_Comment [Automated 6690-2) message] The sy stem which generated this result transmitted reference range : 4.30 - 11.10 10*3/?L. The reference range was not used to interpret this result as normal/abnormal . RBC (test code = See_Comment [Automated 789-8) message] The sy stem which generated this [...] RDW-SD (test code = 46.8 fL 39.0-49.9 31275-0) RDW-CV (test code = 13.2 % 12.0-15.5 788-0) PLT (test code = See_Comment [Automated 777-3) message] The sy stem which generated this result transmitted reference range : 166 - 358 10*3/ ?L. The reference r amadou was not used to interpret this result as normal/abnormal . MPV (test code = 9.5 fL 9.5-12.9 64787-0) NRBC/100 WBC (test See_Comment [Automat ed code = 2828202160) message] The system which generated this result transmitted reference range : 0.0 - 10.0 /100 WBCs. The refer ence range was not u sed to interpret th is result as normal/abnormal . NRBC x10^3 (test code <0.01 See_Comment [Auto mated = 7158242205) message] The s ystem which generated this result transmitted reference range : 10*3/?L. The reference range was not used to interpret this result as normal/abnormal . GRAN MAT (NEUT) % 58.8 % (test code = 770-8) IMM GRAN % (test code 0.40 % = 1128585561) LYMPH % (test code = 34.2 % 736-9) MONO % (test code = 5.5 % 5905-5) EOS % (test code = 0.9 % 713-8) BASO % (test code = 0.2 % 706-2) GRAN MAT x10^3(ANC) 5.45 10*3/uL 1.88-7.09 (test code = 2863032610) IMM GRAN x10^3 (test 0.04 10*3/uL 0.00-0.06 code = 8944008383) LYMPH x10^3 (test code 3.17 10*3/uL 1.32-3.29 = 731-0) MONO x10^3 (test code 0.51 10*3/uL 0.33-0.92 = 742-7) EOS x10^3 (test code = 0.08 10*3/uL 0.03-0.39 711-2) BASO x10^3 (test code <0.03 0.01-0.07 = 704-7) Lab Interpretation Abnormal (test code = 39619-7) [facility] CenterPOCT [id number] 16:05:00 Test Item Value Reference Range Interpretation Comments POCT PREG (test code = 1605) negative On board controls acceptable with present C Line (test code = 3574) POCT PREG LOT # (test code = 3575) [id number] POCT PREG TEST DATE (test 02/13/2022 code = 3576) Lab Interpretation (test code = Normal 58867-2) [facility]"
[2022-09-12 22:34] LABS: Specific Gravity 1.029 (1.005-1.030)
[2022-09-12] MEDS ORDERED: LIDOCAINE 1% MPF 30 ML VIAL ONE (22:44)
[2022-09-12] MEDS ORDERED: SMZ./TMP. 800/160 MG TABLET ONE (22:56)
[2022-09-12] MEDS ORDERED: IBUPROFEN 200 MG TAB PO ONE (22:56)
[2022-09-12] MEDS ORDERED: IBUPROFEN 400 MG TAB ONE (22:57)
[2022-09-12] MEDS ORDERED: ONDANSETRON 4 MG (ODT) TAB ONE (22:57)
--- NOTE | 2022-09-13 00:11 | EDPHYS ---
Physician Documentation [facility] Name: Cindy Albrecht Age: 31 yrs Sex: Female : 1990 Arrival Date: 09/12/2022 Time: 21:56 Bed 7 Private MD: ED Physician Uli Lou HPI: 09/12 22:01 This 31 yrs old Female presents to ER via Unassigned with complaints of sp4 Abscess. 09/13 00:15 31-year-old female presents with pain redness swelling to the right proximal inner sp4 thigh that she thinks may be an abscess. She has noticed it today. Ruth Ann was rather rapid. Patient denied any other abscesses. Historical: - Allergies: 09/12 22:21 Amoxicillin; as6 22:21 PENICILLINS; as6 - PMHx: 22:21 Anxiety; as6 - PSHx: 22:21 knees; as6 - Immunization history:: Client reports receiving the 2nd dose of the Covid vaccine, pfizer. - Social history:: Smoking status: Patient denies any tobacco usage or history of. - Family history:: not pertinent. ROS: 09/13 00:15 Constitutional: Negative for fever, chills, and weight loss, Skin: Negative for injury, sp4 rash positive for right upper inner thigh pain redness swelling and discoloration All other systems are negative. Exam: 00:15 Constitutional: This is a well developed, well nourished patient who is awake, alert, sp4 and in no acute distress. Head/Face: Normocephalic, atraumatic. Eyes: Pupils equal round and reactive to light, extra-ocular motions intact. Lids and lashes normal. Conjunctiva and sclera are not injected. Cornea within normal limits. Periorbital areas with no swelling, redness, or edema. ENT: Nares patent. No nasal discharge, no septal abnormalities noted. Tympanic membranes are normal and external auditory canals are clear. Oropharynx with no redness, swelling, or masses, exudates, or evidence of obstruction, uvula midline. Mucous membranes moist. Neck: Trachea midline, no thyromegaly or masses palpated, and no cervical lymphadenopathy. Supple, full range of motion without nuchal rigidity, or vertebral point tenderness. Chest/axilla: Normal chest wall appearance and motion. Nontender with no deformity. No lesions are appreciated. Cardiovascular: Regular rate and rhythm with a normal S1 and S2. No gallops, murmurs, or rubs. Normal PMI, no JVD. No pulse deficits. Respiratory: Lungs have equal breath sounds bilaterally, clear to auscultation and percussion. No rales, rhonchi or wheezes noted. No increased work of breathing, no retractions or nasal flaring. Abdomen/GI: Soft, non-tender, with normal bowel sounds. No distension or tympany. No guarding or rebound. No evidence of tenderness throughout. Back: No spinal tenderness. No costovertebral tenderness. Skin: Warm, dry with normal turgor. Normal color, there is right upper inner thigh area of cellulitis also discolored skin and induration consistent with infected spider bite or perhaps infected insect bite with small associated abscess and surrounding area of cellulitis MS/ Extremity: Pulses equal, no cyanosis. Neurovascular intact. Full, normal range of motion. Neuro: Awake and alert, GCS 15, oriented to person, place, time, and situation. Cranial nerves II-XII grossly intact. Motor strength 5/5 in all extremities. Sensory grossly intact. Psych: Awake, alert, with orientation to person, place and time. Behavior, mood, and affect are within normal limits Vital Signs: 09/12 22:22 BP 139 / 90; Pulse 79; Resp 18; Temp 98(O); Pulse Ox 96% on R/A; Weight 81.65 kg (R); as6 Height 5 ft. 3 in. (R); Pain 6/10; 09/13 00:18 BP 138 / 80; Pulse 70; Resp 18; Pulse Ox 99% on R/A; kl 09/12 22:22 Body Mass Index 31.89 (81.65 kg, 160.02 cm) as6 09/12 22:22 Pain Scale: Adult as6 Procedures: 00:07 I \T\ D: Incision and drainage was performed for an abscess of the right medial aspect of sp4 right thigh, right proximal inner thigh small abscess likely from spider or insect bite Prepped with Betadine, Anesthetized with 20 ml's 1% Lidocaine. Incised with #11 blade. Drained moderate amount purulent fluid. bloody fluid. Packed with Too small to pack. Dressing: sterile 4x4 gauze, the patient tolerated the procedure well, Advised daily cleansing in the running water in the shower, no bathing. Daily dressing changes. MDM: 09/12 23:28 Patient medically screened. sp4 09/13 00:07 Differential diagnosis: abscess, allergic reaction, cellulitis, insect bite. Data sp4 reviewed: vital signs, nurses notes, lab test result(s), UPT: negative Negative test. Consideration of Admission/Observation Escalation of care including admission/observation considered. ED course: Abscess was drained, will prescribe p.o. Bactrim and p.o. Diflucan. 09/12 22:14 Order name: Test, Urine; Complete Time: 00:07 sp4 09/12 22:33 Order name: Dressing - Wound; Complete Time: 22:42 sp4 09/12 22:33 Order name: Gloves, Sterile; Complete Time: 22:42 sp4 09/12 22:33 Order name: Setup Suture Tray; Complete Time: 22:42 sp4 09/12 22:34 Order name: Incision \T\ Drainage Setup; Complete Time: 22:41 sp4 Administered Medications: 09/12 22:59 Drug: Trimethoprim-Sulfamethoxazole PO (160 mg-800 mg (DS) 1 tablet Route: PO; kl 22:59 Drug: Ibuprofen PO 600 mg Route: PO; kl 22:59 Drug: Ondansetron PO 4 mg Route: PO; kl Disposition Summary: 09/13/22 00:11 Discharge Ordered Location: Home sp4 Problem: new sp4 Symptoms: have improved sp4 Condition: Stable sp4 Diagnosis - Cutaneous abscess of right lower limb sp4 Followup: sp4 - With: Private Physician - When: 7 - 10 days - Reason: Recheck today's complaints Discharge Instructions: - Discharge Summary Sheet sp4 - Incision and Drainage, Care After sp4 Forms: - [email or web address] sp4 Prescriptions: - Fluconazole 200 mg Oral Tablet - take 1 tablet by ORAL route once daily Take 2 tabs daily for 2 days at the end sp4 of the course of Bactrim Antibiotic; 2 tablet; Refills: 0, Product Selection Permitted - Bactrim DS 800-160 mg Oral Tablet - take 1 tablet by ORAL route every 12 hours for 10 days; 20 tablet; Refills: 0, sp4 Product Selection Permitted Signatures: Dispatcher [employer] Bryanna Welsey, RN RN Alberto Lozano RN RN as6 Uli Lou MD MD sp4
--- NOTE | 2022-09-13 00:11 | ER ---
Nurse's Notes [facility] Name: Cindy Albrecht Age: 31 yrs Sex: Female : 1990 Arrival Date: 09/12/2022 Time: 21:56 Bed 7 Private MD: Diagnosis: Cutaneous abscess of right lower limb Presentation: 09/12 22:27 Chief complaint: Patient states: abscess to groin that pt noticed today. Coronavirus as6 screen: At this time, the client does not indicate any symptoms associated with coronavirus-19. Ebola Screen: No symptoms or risks identified at this time. Initial Sepsis Screen: Does the patient meet any 2 criteria? No. Patient's initial sepsis screen is negative. Does the patient have a suspected source of infection? No. Patient's initial sepsis screen is negative. Risk Assessment: Do you want to hurt yourself or someone else? Patient reports no desire to harm self or others. Onset of symptoms was September 12, 2022. 22:27 Acuity: MARIA VICTORIA 4 as6 22:27 Method Of Arrival: Ambulatory as6 Triage Assessment: 09/13 00:18 General: Appears in no apparent distress. Behavior is calm, cooperative. Pain: kl Complains of pain in medial aspect of right thigh. Historical: - Allergies: 09/12 22:21 Amoxicillin; as6 22:21 PENICILLINS; as6 - PMHx: 22:21 Anxiety; as6 - PSHx: 22:21 knees; as6 - Immunization history:: Client reports receiving the 2nd dose of the Covid vaccine, pfizer. - Social history:: Smoking status: Patient denies any tobacco usage or history of. - Family history:: not pertinent. Screenin:07 [facility] ED Fall Risk Assessment (Adult) History of falling in the last 3 months, kl including since admission No falls in past 3 months (0 pts) Confusion or Disorientation No (0 pts) Intoxicated or Sedated No (0 pts) Impaired Gait No (0 pts) Mobility Assist Device Used No (0 pt) Altered Elimination No (0 pt) Score/Fall Risk Level 0 - 2 = Low Risk Oriented to surroundings, Maintained a safe environment. Abuse screen: Denies threats or abuse. Nutritional screening: No deficits noted. Tuberculosis screening: No symptoms or risk factors identified. Assessment: 23:07 Reassessment: Patient appears in no apparent distress at this time. kl 09/13 00:18 Reassessment: Patient appears in no apparent distress at this time. Patient states kl feeling better. Patient states symptoms have improved. Vital Signs: 09/12 22:22 BP 139 / 90; Pulse 79; Resp 18; Temp 98(O); Pulse Ox 96% on R/A; Weight 81.65 kg (R); as6 Height 5 ft. 3 in. (R); Pain 6/10; 09/13 00:18 BP 138 / 80; Pulse 70; Resp 18; Pulse Ox 99% on R/A; kl 09/12 22:22 Body Mass Index 31.89 (81.65 kg, 160.02 cm) as6 09/12 22:22 Pain Scale: Adult as6 ED Course: 09/12 22:00 Patient arrived in ED. ag3 22:01 Uli Lou MD is Attending Physician. sp4 22:21 Arm band placed on. as6 22:28 Triage completed. as6 23:00 Tisha Oliva RN is Primary Nurse. kd3 23:08 Assist provider with I \T\ D: of an abscess on perirectal area Set up I\T\D tray. Performed kl by Uli Lou MD. 09/13 00:17 Dressings: 4X4s X 2; medial aspect of right thigh. Wound care: was cleaned with dressed kl with 4X4s, ABD pads, Patient tolerated well. 00:19 Patient has correct armband on for positive identification. kl 00:19 Patient did not have IV access during this emergency room visit. kl Administered Medications: 09/12 22:59 Drug: Trimethoprim-Sulfamethoxazole PO (160 mg-800 mg (DS) 1 tablet Route: PO; kl 22:59 Drug: Ibuprofen PO 600 mg Route: PO; kl 22:59 Drug: Ondansetron PO 4 mg Route: PO; Medication: 09/13 00:19 VIS not applicable for this client. kl Outcome: 00:11 Discharge ordered by . sp4 00:18 Discharged to home ambulatory. kl 00:18 Condition: improved 00:18 Discharge instructions given to patient, Instructed on discharge instructions, follow up and referral plans. medication usage, wound care, Demonstrated understanding of instructions, follow-up care, medications, wound care, Prescriptions given X 2. 00:19 Patient left the ED. kl Signatures: Bryanna Schmid, RN RN Odalis Babb3 Albetro Brooks RN RN as6 Tisha Oliva RN RN kd3 Uli Lou MD MD sp4
[2022-09-13 00:43] VITALS: TEMP 98
[2022-09-13 00:44] VITALS: BP 138/80; O2SAT 99
== END 2022-09-13 00:19 | disposition home or self-care (01) ==
LOC: ER 21:56
PROC: 0H9HXZZ Drainage of Right Upper Leg Skin, External Approach (ICD-10-PCS; principal; 2022-09-13)
DX: L02.415 Cutaneous abscess of right lower limb (principal); Z88.0 Allergy status to penicillin; Z88.1 Allergy status to other antibiotic agents
CPT/HCPCS: 81025; 99284; 10060; Q0162; J2001